=== PATIENT | male | born 1955 | race Hispanic/Latino ===

== ENCOUNTER 2019-03-08 10:36 | Outpatient (CLI) | payer MEDICARE, MEDICAID ==
[~2019-03-08 10:36] MED LIST: Iopamidol 370 76% 100 ML VIAL ONE
--- NOTE | 2019-03-08 12:24 | CT ---
CT ABDOMEN AND PELVIS PERFORMED WITH IV CONTRAST ENHANCEMENT: Date: 03/08/19 HISTORY: Cirrhosis, hepatitis, weight loss. COMPARISON: Chest CT dated 08/15/11. FINDINGS: There is some linear parenchymal change in the right middle lobe, probably related to atelectasis bri lit scar. Some ground-glass opacity in the right lung base is probably mainly on the basis of gravity -dependent atelectasis, although it could indicate some mild pneumonitis change, slightly more diffus e. There are COPD type changes also noted. The liver and spleen are within normal limits of size and show no focal lesions. The pancreas shows n o evidence of mass or ductal dilatation. The gallbladder is normal in appearance. Right and left adrenal glands are normal. Right and left kidneys are normal in size. There is a hypod ensity involving the lower pole of the left kidney. It has CT Hounsfield unit numbers that are border line, but most likely this represents a cyst. Hypodense lesion in the posterior cortex of the right k idney is much smaller than on the prior 2010 study, and appears to represent a cyst that is involuted . There is no significant periaortic or mesenteric lymphadenopathy. There is a moderate amount of sto ol present within the colon. CT of pelvis was performed with contrast enhancement. There is no adenopathy, mass, or free fluid. Scoliotic changes of the spine and extensive postoperative changes of the lumbar spine. IMPRESSION: 1. Some ground-glass opacity in the right lung base. Some of this could represent reticular scarring versus atelectasis, less likely infiltrative change. There is also right middle lobe atelectasis see n. 2. Hypodensity involving the lower pole of the left kidney. Borderline Hounsfield unit numbers, but statistically most likely a cyst. 3. Postoperative changes of the spine and left hip. POS: TPC
== END 2019-03-08 10:37 | disposition home or self-care (01) ==
LOC: BICCT 10:36
PROVIDERS: ATTEND Physician Assistant Medical
DX: K74.60 Unspecified cirrhosis of liver (principal); B18.2 Chronic viral hepatitis C; K72.90 Hepatic failure, unspecified without coma; R63.4 Abnormal weight loss; R11.10 Vomiting, unspecified; R19.4 Change in bowel habit; J98.11 Atelectasis; R91.8 Other nonspecific abnormal finding of lung field; R93.422 Abnormal radiologic findings on diagnostic imaging of left kidney; Z98.890 Other specified postprocedural states
CPT/HCPCS: 74177; 82565; Q9967

== ENCOUNTER 2019-03-22 16:10 | Inpatient (IN) | payer MEDICARE, MEDICAID ==
--- NOTE | 2019-03-22 18:18 | RAD ---
Radiograph chest one view: DATE: 03/22/2019 Time: 5:50 PM HISTORY: 64-year-old male with generalized weakness COMPARISON: 01/08/2016 FINDINGS: Lungs are hypoinflated on the current study. New finding of ill-defined areas of increased attenuatio n at the medial bases of the bilateral lungs, either chronic changes or subsegmental atelectasis. Again noted are the multiple fractured sternotomy wires. Left subclavian AICD. No cardiomegaly, pulmo nary alveolar edema, or pneumothorax. IMPRESSION: 1. Automatic implantable cardioverter-defibrillator 2. Hypoinflated lungs. 3. No gross consolidation or pulmonary edema
--- NOTE | 2019-03-22 18:20 | CT ---
CT brain noncontrast: HISTORY: 64-year-old male with generalized weakness FINDINGS: There is no evidence of acute intra-axial or extra-axial hemorrhage. There is no midline shift or any other mass effect. There is no extra-axial fluid collection. There is no evidence of obstructive hydrocephalus. Calvarium is intact. IMPRESSION: No acute intracranial findings.
--- NOTE | 2019-03-22 18:26 | CT ---
CT CERVICAL SPINE NONCONTRAST: DATE: 03/22/2019 HISTORY: 64-year-old male with bilateral hand numbness and generalized weakness FINDINGS: There are no jumped or perched facets. There is no evidence of acute fracture. The vertebral body hei ghts are maintained. There is no prevertebral soft tissue swelling. There are degenerative disc changes, including very severe at C5-6 and C6-7; and facet osteoarthrosis, including severe on the ri ght at C2-3 and C4. There are chronic anterolisthesis of C2 on C3 and C7 on T1. There is multilevel high-grade central spinal canal stenosis and high-grade neural foraminal stenosis.. IMPRESSION: 1) Advanced cervical spondylosis. 2) no evidence of acute fracture or acute traumatic subluxation.
[2019-03-22 19:02] LABS: #Basophils 0.1 thou/uL (0.0-0.2); #Eosinphils 0.9 thou/uL (0.0-0.7); #Lymphocytes 1.9 thou/uL (1.20-3.40); #Monocytes 0.7 thou/uL (0.11-0.59); #Neutrophils 3.1 thou/uL (1.40-6.50); %Basophils 1.3 % (0.0-1.0); %Lymphocytes 28.3 % (21.0-51.0); %Neutrophils 45.4 % (42.0-75.0); Hemoglobin 16.8 g/dL (14.0-18.0); Mean Corpuscular Hemoglobin 32.7 pg (27.0-31.0); Mean Corpuscular Volume 96.3 fL (78.0-98.0); Mean Platelet Volume 9.2 fL (7.4-10.4); Platelet Count 170 thou/uL (130-400); RBC Distribution Width 12.8 % (11.5-14.5); Red Blood Cell (RBC) Count 5.15 mill/uL (4.70-6.10); White Blood Cell (WBC) Count 6.7 thou/uL (4.8-10.8)
[2019-03-22 19:22] LABS: ALT (SGPT) 32 U/L (8-55); AST (SGOT) 39 U/L (5-34); Albumin 3.6 g/dL (3.4-4.8); Alkaline Phosphatase 75 U/L (40-150); Anion Gap 10 mmol/L (10-20); BUN (Urea Nitrogen) 19 mg/dL (8.4-25.7); Bilirubin, Total 0.7 mg/dL (0.2-1.2); Calc. Creatinine Clearance 0 mL/min (70-130); Calcium 9.8 mg/dL (7.8-10.44); Carbon Dioxide 27 mmol/L (23-31); Chloride 106 mmol/L (98-107); Estimated GFR-MDRD Greater than 90; Globulin 4.4 g/dL (2.4-3.5); Glucose 94 mg/dL (80-115); Potassium 3.8 mmol/L (3.5-5.1); Sodium 139 mmol/L (136-145)
--- NOTE | 2019-03-22 21:39 | CT ---
CT lumbar spine noncontrast: HISTORY: 64-year-old male with urinary incontinence and bilateral lower extremity numbness and weakness. COMPARISON: None FINDINGS: 12 lumbar-type vertebrae. Mild right scoliosis of lower thoracic spine. Very severe degenerative disc disease at T12-L1 and L1-2. Anterior wedge compression deformity of L1 due to old compression fracture. Grade 1 anterolisthesis of L5 on S1. Distended urinary bladder. Bilateral pedicle screws wi th vertical interlocking rods at L2, L3, L4, L5, and S1. Hardware loosening of bilateral L2 pedicle screws. The bilateral interlocking vertical rods are also connected to long bilateral iliac wings scr ews. Wide laminectomy defects from L3-4 through S1. Ankylosis between the L5 and S1 vertebral bodies. Methyl methacrylate cement within medial aspect of right upper iliac wing. Moderate central s oksana canal stenosis at L2 1-2 and T12-L1. Moderate to severe right neural foraminal stenosis at L1-2. IMPRESSION: 1. Severe lumbar spondylosis. 2. Bilateral pedicle screws at all levels from L2 through S1. 3. Hardware loosening of the bilateral L2 pedicle screws. 4. Midline laminectomies throughout mid and lower levels. 5. Severe degenerative disc disease at T12-L1 and L1-2. 6. Distended urinary bladder. 7. No acute compression fracture identified.
--- NOTE | 2019-03-22 21:53 | CT ---
THORACIC SPINE CT SCAN WITHOUT IV CONTRAST: 03/22/19 HISTORY: Lower extremity numbness and weakness and incontinence. There is some bilateral bullous changes and chronic lung changes. There is heterogeneous bony deminer alization. Multilevel disc osteophytosis with disc degeneration and disc desiccation changes particu larly in the lower thoracic spine. There is also severe disc osteophytosis of the visualized lower ce rvical spine with mild anterolisthesis of C7 on T1 of approximately 0.2 cm. There is no evidence for acute fracture or dislocation. There is moderate dextroscoliosis of the lower thoracic vertebral colu mn. There is some variable severity mostly mild lateral recess stenosis throughout the thoracic spine but most marked from T8-T9 down to T10-T11. No evidence for high grade central canal stenosis. No ev idence for focal bone lesion. IMPRESSION: Multilevel variable severity disc osteophytosis with some bone demineralization. Mild to moderate lat eral recess stenosis, particularly of the lower thoracic vertebral column. No evidence for high grade canal stenosis or dread cord compression. Bilateral bullous chronic lung changes. If there remains strong clinical concern for significant thoracic spine stenosis or cord compression, follow-up nonemergent myelogram and post myelogram CT scan, since an MRI cannot be performed because of pacemaker. POS: RRE
[2019-03-22] MEDS ORDERED: Ondansetron PF 4 MG/2 ML Vial IVP PRN (23:38)
[2019-03-22] MEDS ORDERED: Ondansetron ODT 4 MG TAB PO PRN (23:38)
[2019-03-22] MEDS ORDERED: PROVENTIL INHALER 6.7 G (200 INHALATIONS) INH PRN (23:40)
[2019-03-22] MEDS ORDERED: Carvedilol 6.25 MG TAB PO SCH (23:45)
[2019-03-22] MEDS ORDERED: Pregabalin 75 MG CAP PO SCH (23:45)
[2019-03-23] MEDS: Nicotine 14 MG PATCH TD SCH ×2 (00:13→20:27)
[2019-03-23] MEDS: HYDROcodone/Acetaminophen 5/325 mg Tablet PO PRN ×5 (00:13→19:32)
--- NOTE | 2019-03-23 00:36 | HP ---
This is CHRISTIANE Loredo dictating a report for Dariel Danielle MD. CHIEF COMPLAINT: Upper and lower extremity weakness, unable to walk. HISTORY OF PRESENT ILLNESS: Mr. Vera is a pleasant 64-year-old man with a history of chronic back pain who has undergone multiple back surgeries, presenting with worsening upper and lower extremity weakness. He first began to experience numbness in the bilateral hands with weakness that progressively has worsened since one week ago. He then began to experience severe weakness in the bilateral legs and has gotten to the point where he is no longer able to walk and has been carried by his nephew. The patient prior to this was mobilizing with a cane for short distances and a walker for longer distances. He reports presenting to the emergency department last week at [facility] due to a fall. The patient denies having any lightheadedness or dizziness, but was diagnosed with vertigo and sent home on meclizine. The patient's condition has continued to deteriorate. When he does attempt to stand, he has noticed urinary incontinence. Reports reduced sensation in the lower legs. Has not had any incontinence with his stools and denies having any saddle anesthesias or paresthesia. He reports having multiple falls, up to 12 times over the weekend prior to going in to be seen at [facility]. No further falls since as he has been carried by his nephew. He denies having any fevers, chills, or sweats. No headaches or vision changes. No speech disturbances. REVIEW OF SYSTEMS: All other review of systems apart from those mentioned above in HPI are negative. PAST MEDICAL HISTORY: 1. COPD. 2. Coronary artery disease. 3. CHF. 4. History of DC. 5. Hypertension. 6. Musculoskeletal disorder. 7. Grade 4 spondylolisthesis. 8. Depression. 9. Dehiscence of sternum. PAST SURGICAL HISTORY: 1. Previous back surgery. 2. Stents placed x2. 3. Pacemaker/internal defibrillator. 4. CABG. 5. ACL repair. SOCIAL HISTORY: The patient lives with his . Currently smokes one pack per day since age 10. Denies any illicit drug use or alcohol use. ALLERGIES: NO KNOWN DRUG ALLERGIES. CURRENT MEDICATIONS: 1. Meclizine. 2. Albuterol. 3. Amlodipine. 4. Aspirin. 5. Azelastine. 6. Clopidogrel. 7. Docusate sodium. 8. Finasteride. 9. Hydrochlorothiazide. 10. [place]-3. 11. Multivitamin. 12. Pravastatin. 13. Baclofen. 14. Coreg. 15. Cymbalta. 16. Flomax. 17. Lyrica. 18. Oxycodone. PHYSICAL EXAMINATION: GENERAL: The patient appears very thin and frail. He is in no acute distress. VITAL SIGNS: Temperature 97.8, pulse 75, respirations 16, blood pressure 116/71, and O2 saturation 98% on room air. HEENT: Normocephalic and atraumatic. Pupils are equal, round, and reactive to light. Sclerae are anicteric. Oropharynx is clear. NECK: Supple. No nuchal rigidity or stiffness. Full range of motion. LUNGS: Clear to auscultation bilaterally with reduced breath sounds at the bilateral bases. CARDIAC: Regular rate and rhythm. ABDOMEN: Soft, nontender, and nondistended. Normoactive bowel sounds present. EXTREMITIES: Without any edema or swelling. He is noted to have reduced power in the bilateral lower extremities. Reduced sensation on the right leg compared to the left. Equal sensation involving the bilateral thighs. He is unable to flex both knees and states this is longstanding since previous knee surgeries. Notable fasciculations of the bilateral quadriceps. Upper extremities notable for weakness, however, he has good finger grasp strength and hand awning installer strength with reduced sensation involving both upper extremities. Full passive range of motion of bilateral shoulders. Reduced strength against resistance. NEUROLOGIC: Alert and oriented x3. Facial movements and speech normal. Extraocular movements normal. No tongue deviation. SKIN: Without rash or jaundice. LABORATORY DATA: White blood count 6.7, hemoglobin 16.8, hematocrit 49.5, and platelets 170. Sodium 139, potassium 3.8, chloride 106, BUN 19, creatinine 0.84, GFR greater than 90, glucose 94, calcium 9.8, total bilirubin 0.7, AST 39, ALT 32, and alkaline phosphatase 75. Troponin I 0.028. Total protein 8, albumin 3.6, and globulin 4.4. IMAGING DATA: Chest x-ray; AICD in place. Hypoinflated lungs. No gross consolidation or pulmonary edema. CT brain; no acute intracranial findings. Cervical spine CT; advanced cervical spondylosis. No evidence of fracture or acute traumatic subluxation. Multilevel high-grade central spinal canal stenosis and high-grade neural foraminal stenosis. IMPRESSION AND PLAN: Mr. Vera is a pleasant 64-year-old man who is being admitted for management of the following. 1. Upper and lower extremity weakness. This has been progressively worsening for several weeks, and since one week ago, he is no longer to walk at all. He describes urinary incontinence, which typically occurs when he stands and states he has no sensation of needing to empty his bladder and passes urine unexpectedly. Denies having any bowel incontinence. No saddle anesthesia or paresthesias. Cervical spine CT has demonstrated high-grade stenosis with cervical spine spondylosis. We will obtain a CT scan of the cervical and lumbar spine given the fact that we cannot obtain an MRI due to the AICD. A consult has been placed to Neurosurgery. 2. Chronic back pain. We will resume home medications. 3. Coronary artery disease/congestive heart failure. We will resume home medications. 4. Hypertension. We will resume home medications and monitor blood pressure. 5. Tobacco use. We will place him on a nicotine patch. 6. Chronic obstructive pulmonary disease. We will resume his usual inhalers and monitor O2 saturations. 7. Full code status. Patient's case was discussed with Dr. Danielle, who agrees with plan of care as described above. Job ID: [id number]
[2019-03-23] MEDS: Ipratropium Bromide 2.5 ml Neb NEB SCH ×4 (01:17→18:37)
[2019-03-23 02:03] VITALS: BMI 21.9
[2019-03-23 05:50] LABS: #Basophils 0.1 thou/uL (0.0-0.2); #Eosinphils 0.7 thou/uL (0.0-0.7); #Lymphocytes 1.7 thou/uL (1.20-3.40); #Monocytes 0.7 thou/uL (0.11-0.59); #Neutrophils 3.2 thou/uL (1.40-6.50); %Basophils 0.8 % (0.0-1.0); %Eosinophils 11.2 % (0.0-10.0); %Lymphocytes 26.3 % (21.0-51.0); %Monocytes 11.1 % (0.0-10.0); %Neutrophils 50.6 % (42.0-75.0); Mean Corpuscular HGB CONC 33.6 g/dL (32.0-36.0); Mean Corpuscular Hemoglobin 31.7 pg (27.0-31.0); Mean Corpuscular Volume 94.4 fL (78.0-98.0); Mean Platelet Volume 9.7 fL (7.4-10.4); Platelet Count 154 thou/uL (130-400); RBC Distribution Width 12.7 % (11.5-14.5); Red Blood Cell (RBC) Count 4.74 mill/uL (4.70-6.10); White Blood Cell (WBC) Count 6.3 thou/uL (4.8-10.8)
[2019-03-23 06:17] LABS: Anion Gap 11 mmol/L (10-20); BUN (Urea Nitrogen) 21 mg/dL (8.4-25.7); Calc. Creatinine Clearance 73 mL/min (70-130); Carbon Dioxide 24 mmol/L (23-31); Chloride 108 mmol/L (98-107); Estimated GFR-MDRD Greater than 90; Glucose 83 mg/dL (80-115); Potassium 3.8 mmol/L (3.5-5.1); Sodium 139 mmol/L (136-145)
[2019-03-23] MEDS: Aspirin 81 mg Enteric Coated Tablet PO SCH (07:57)
[2019-03-23] MEDS: Carvedilol 6.25 MG TAB PO SCH ×2 (07:57→20:28)
[2019-03-23] MEDS: Clopidogrel Bisulfate 75 MG TAB PO SCH (07:57)
[2019-03-23] MEDS: Pregabalin 75 MG CAP PO SCH ×4 (08:15→20:28)
[2019-03-23] MEDS: Baclofen 10 MG TAB PO SCH ×3 (08:16→20:29)
[2019-03-23] MEDS: Amlodipine 5 MG TAB PO SCH (08:16)
[2019-03-23] MEDS: DULoxetine 60 MG CAP PO SCH (08:17)
[2019-03-23] MEDS: Tamsulosin HCl 0.4 MG CAP PO SCH (08:17)
[2019-03-23] MEDS: Famotidine/PF 20 mg/2ml Vial SLOW IVP SCH ×2 (08:17→20:29)
[2019-03-23] MEDS: Multivit, Therapeutic 1 TAB PO SCH (08:23)
[2019-03-23] MEDS: Hydrochlorothiazide 25 MG TAB PO SCH (08:23)
[2019-03-23] MEDS ORDERED: Prevnar 13-Val Conj/PF 0.5 ML SYRINGE IM ONE (09:00)
--- NOTE | 2019-03-23 15:10 | PDOC.PN ---
- Subjective Encounter Start Date: 03/23/19 Encounter Start Time: 15:07 Patient lying in bed, he reports pain slightly improved today, but he reports quite a bit of weakness. He denies chest pain, shortness of breath. CT and other imaging reviewed and discussed with patient. - Objective Resuscitation Status - Order Detail: 03/22/19 21:17 Resuscitation Status Routine Co-Sign Provider: Resuscitation Status: FULL: Full Resuscitation Discussed with: Patient and MAR Reviewed: Yes Vital Signs & Weight: Vital Signs (12 hours) Temp Pulse Resp BP Pulse Ox 03/23/19 13:27 80 16 96 03/23/19 11:41 97.7 F 60 18 126/86 92 L 03/23/19 08:16 50 L 03/23/19 07:43 98.2 F 50 L 18 143/94 H 92 L 03/23/19 07:05 67 16 95 03/23/19 05:16 99.6 F 103 H 22 H 153/79 H 93 L Weight Weight 124 lb I&O: 03/22/19 03/23/19 03/24/19 06:59 06:59 06:59 Intake Total 610 Output Total 300 Balance 310 Result Diagrams: 03/23/19 04:59 03/23/19 04:59 Radiology Reviewed by me: Yes Phys Exam - Physical Examination Constitutional: NAD HEENT: moist MMs Neck: supple Respiratory: no rales, no rhonchi Cardiovascular: RRR, no significant murmur Gastrointestinal: soft, positive bowel sounds Musculoskeletal: no edema, pulses present Neurological: moves all 4 limbs Psychiatric: normal affect, A&O x 3 Skin: no rash, cap refill <2 seconds Dx/Plan (1) Lumbar stenosis Code(s): M48.061 - SPINAL STENOSIS, LUMBAR REGION WITHOUT NEUROGENIC HORACIO Status: Acute (2) Spondylosis Code(s): M47.9 - SPONDYLOSIS, UNSPECIFIED Status: Acute (3) Chronic back pain Code(s): M54.9 - DORSALGIA, UNSPECIFIED; G89.29 - OTHER CHRONIC PAIN Status: Acute (4) CAD (coronary artery disease) Code(s): I25.10 - ATHSCL HEART DISEASE OF [place] CORONARY ARTERY W/O ANG PCTRS Status: Acute (5) HTN (hypertension) Code(s): I10 - ESSENTIAL (PRIMARY) HYPERTENSION Status: Acute - Plan cont current plan of care, PT/OT * Continue supportive and symptomatic care * Neuro surgery services are consulted and appreciate recommendations * Continue other home medications * PT/OT * Imaging reviewed and discussed with patient * Patient may require Myelogram
[2019-03-23] MEDS: FINASTERIDE 1 MG PO SCH (15:51)
[2019-03-23] MEDS: Pravastatin Sodium 40 MG TAB PO SCH (20:29)
[2019-03-23] MEDS: oxyCODONE 5 MG TAB PO PRN (20:57)
--- NOTE | 2019-03-23 23:47 | CON ---
DATE OF CONSULTATION: This is Vic Perdomo PA-C dictating a report for Sin Garcia MD. This is a 50-minute initial patient evaluation of which greater than 50% of the exam was spent in counseling and coordinating the patient's care. Remainder of the exam was spent in review of the patient's medical records and formulation of treatment plan as well as review of appropriate imaging studies. CHIEF COMPLAINT: Weakness, greater in the arms than the legs with increased falls and progressive cervical myelopathy. HISTORY OF PRESENT ILLNESS: Mr. Vera is a pleasant 64-year-old male, who was admitted to [facility] with complaints of increased falls. The patient states over the past 6 to 8 weeks, he has noticed difficulty with fine motor movements, weakness in the arms greater than the legs, and difficulty controlling urine. The patient, I should note, has chronic low back pain with right hip pain and has had multitude of lumbar spinal fusions with Davian and White in the [place] area. He also complains of right greater than left lateral biceps pain, again with paresthesias throughout the bilateral hands, bilateral feet with burning sensation into the hands and fine motor incoordination. He has had increased falls. Specifically over the last 2 days, he notes roughly 12 falls, though does use a cane and a walker for gait stability. He also endorses a positive Lhermitte sign with cervical range of motion. He has been undergoing PT and OT as prescribed by his primary care provider over the past several weeks, but notes no improvement in his symptoms. He denies any saddle anesthesia or bowel incontinence, but again has noticed some urinary incontinence over the past 2 to 3 weeks, which has even required him to wear protection even at home. Review of the patient's CT scan is negative for intracranial hemorrhage or skull fracture. There does not appear to be any acute fractures of the cervical, thoracic, and lumbar spines. More specifically, it does appear that the patient likely has significant cervical spinal stenosis, but this is difficult to tell on CT scan. Review of his lumbar spine CT, it does appear as though he is developing proximal adjacent segment disease at L1-L2 with screws at L2-L3, but stability of his hardware from L2-S1 with iliac wing screws. There does not appear to be any malfunction of the hardware in regard to hardware failure or fracture. I should also note that the patient is on Plavix and aspirin due to coronary artery disease, history of NV with stents and pacemaker placement. I should also note that the patient is a current everyday smoker. PHYSICAL EXAMINATION: GENERAL: The patient is awake, alert, and appropriate. He appears to be older than his stated age. He does have nicotine staining on his fingers. EXTREMITIES: He appears to have weakness throughout the bilateral upper and bilateral lower extremities, but most profoundly in the bilateral right greater than left hand intrinsics, especially with family law legal assistant. He also has functional weakness when attempting to lift the phone in his room and does appear to have a significant fine motor incoordination and difficulty with finger dexterity. He has good sensation into the belly button region as well as into the bilateral thighs. He has no Anne's bilaterally and no tenderness to palpation of the cervical spine. He does have a history of sternal dehiscence after his stent placement and pacemaker placement. Although, I should note his sternal wound is very well healed. He has positive again Lhermitte with electric shock sensations throughout the back, bilateral lower extremities, and into the feet. IMPRESSION AND DIAGNOSES: 1. Chronic low back pain and right hip pain with multiple lumbar spine surgeries at outside institutions. 2. Likely, progressive cervical spondylosis with myelopathy. PLAN: Ideally, we would like to get an MRI of the spine; however, given the fact the patient has a pacemaker, we are unable to do this. The patient will need myelograms of his cervical, thoracic, and lumbar spines. He is on Plavix and aspirin, so these will need to be held. Likely, this can be done on an outpatient basis. I also discussed the fact that even though we are going to get a spinal imaging, the patient may not be physically healthy enough to undergo any type of surgery and he understands this. We did discuss the importance of smoking cessation. Nonetheless, we will coordinate when his CT myelograms can be completed, but otherwise his pain control be maximized as well as rehab including PT and OT. Please call with any changes in the patient's neurologic status. Otherwise, we will follow up on the patient. Job ID: [id number]
[2019-03-24] MEDS: Ipratropium Bromide 2.5 ml Neb NEB SCH ×4 (00:02→18:25)
[2019-03-24] MEDS: oxyCODONE 5 MG TAB PO PRN ×2 (05:42→20:21)
[2019-03-24] MEDS: DULoxetine 60 MG CAP PO SCH (08:30)
[2019-03-24] MEDS: Amlodipine 5 MG TAB PO SCH (08:31)
[2019-03-24] MEDS: Baclofen 10 MG TAB PO SCH ×3 (08:31→20:18)
[2019-03-24] MEDS: Multivit, Therapeutic 1 TAB PO SCH (08:31)
[2019-03-24] MEDS: Carvedilol 6.25 MG TAB PO SCH ×2 (08:32→20:20)
[2019-03-24] MEDS: Pregabalin 75 MG CAP PO SCH ×4 (08:32→21:28)
[2019-03-24] MEDS: Hydrochlorothiazide 25 MG TAB PO SCH (08:32)
[2019-03-24] MEDS: Tamsulosin HCl 0.4 MG CAP PO SCH (08:33)
[2019-03-24] MEDS: Famotidine/PF 20 mg/2ml Vial SLOW IVP SCH ×2 (08:39→20:20)
[2019-03-24] MEDS: HYDROcodone/Acetaminophen 5/325 mg Tablet PO PRN ×2 (11:33→15:43)
--- NOTE | 2019-03-24 14:33 | PRG ---
DATE OF SERVICE: This is Vic Perdomo PA-C dictating a report for Sin Garcia MD. This is a 10-minute subsequent patient evaluation, in which greater than 50% of the exam was spent in counseling and coordinating the patient's care. Remainder of the exam was spent in review of the patient's medical records and formulation of treatment plan. Mr. Vera is hospital day #2 and presents with likely cervical myelopathy including increased falls, right greater than left arm weakness and fine motor incoordination of the hands. The patient states that he does continue to have neck pain as well. He notes no change in his symptoms today compared to yesterday. He remains with right greater than left weakness in multiple myotomes, most specifically into the right hand intrinsics. He has intact sensation to light touch throughout, however. His exam is stable from yesterday. At this time, we need to determine if the patient is able to be off his blood thinners long enough to undergo a myelogram, which we will likely need to hold at least 7 days prior to the myelogram. We would obtain cervical, thoracic and lumbar spine myelograms in order to fully assess the patient's spine, although it is highly likely that the patient has most stenosis located in the cervical spine. Nonetheless, I think it would be prudent for Cardiology to weigh in if the patient again is stable enough to come off the blood thinners. He will need aggressive rehab including physical therapy and occupational therapy, and if surgery is warranted in the future, he will need medical clearance for this as well. He would likely benefit for aggressive therapy and discharge to inpatient rehab again to maximize his therapies. Neurosurgery at this point does not see a role for urgent intervention as the patient has been dealing with this for the past several months. Please call with any changes in patient's neurologic status. Otherwise, when the patient is able to come off his blood thinners, we will order appropriate myelogram and determine surgical treatment plan. Job ID: [id number]
[2019-03-24] MEDS: Aspirin 81 mg Enteric Coated Tablet PO SCH (14:56)
[2019-03-24] MEDS: Clopidogrel Bisulfate 75 MG TAB PO SCH (14:56)
[2019-03-24] MEDS: FINASTERIDE 1 MG PO SCH (14:57)
--- NOTE | 2019-03-24 18:21 | PDOC.PN ---
- Subjective Encounter Start Date: 03/24/19 Encounter Start Time: 18:19 Patient lying comfortably in bed, No complaints over night. Neuro surgery recommending MRI vs myelogram. He denies chest pain, palpitations. Weakness continuing. Cardiology services consulted for evaluation and determined device is MRI compatible and patient may come off antiplatelet therapy for procedure and or surgery if needed. - Objective Resuscitation Status - Order Detail: 03/22/19 21:17 Resuscitation Status Routine Co-Sign Provider: Resuscitation Status: FULL: Full Resuscitation Discussed with: Patient and JOHN Reviewed: Yes Vital Signs & Weight: Vital Signs (12 hours) Temp Pulse Resp BP Pulse Ox 03/24/19 16:37 98.0 F 65 16 104/69 94 L 03/24/19 14:36 61 16 03/24/19 11:54 98.2 F 61 18 119/83 94 L 03/24/19 08:31 61 03/24/19 08:00 98.6 F 61 16 146/93 H 98 03/24/19 06:48 61 16 Weight Weight 124 lb I&O: 03/23/19 03/24/19 03/25/19 06:59 06:59 06:59 Intake Total 860 497 8905 Output Total 300 400 650 Balance 310 212 850 Result Diagrams: 03/23/19 04:59 03/23/19 04:59 Radiology Reviewed by me: Yes Phys Exam - Physical Examination Constitutional: NAD HEENT: moist MMs, oral pharynx no lesions Neck: supple Respiratory: no wheezing, clear to auscultation bilateral Cardiovascular: RRR, no rub Gastrointestinal: soft, no distention, positive bowel sounds Musculoskeletal: no edema, pulses present Neurological: moves all 4 limbs Psychiatric: normal affect, A&O x 3 Skin: no rash, cap refill <2 seconds Dx/Plan (1) Lumbar stenosis Code(s): M48.061 - SPINAL STENOSIS, LUMBAR REGION WITHOUT NEUROGENIC HORACIO Status: Acute (2) Spondylosis Code(s): M47.9 - SPONDYLOSIS, UNSPECIFIED Status: Acute (3) Chronic back pain Code(s): M54.9 - DORSALGIA, UNSPECIFIED; G89.29 - OTHER CHRONIC PAIN Status: Acute (4) CAD (coronary artery disease) Code(s): I25.10 - ATHSCL HEART DISEASE OF [place] CORONARY ARTERY W/O ANG PCTRS Status: Acute (5) HTN (hypertension) Code(s): I10 - ESSENTIAL (PRIMARY) HYPERTENSION Status: Acute (6) Cervical myelopathy with cervical radiculopathy Code(s): M47.12 - OTHER SPONDYLOSIS WITH MYELOPATHY, CERVICAL REGION Status: Acute - Plan cont current plan of care, PT/OT * Continue supportive and symptomatic care * PT/OT * Cardiology services consulted and determined patient able to have MRI due to device being compatible * Neurology services concern for cervical myelopathy and recommending further evaluation * Rehab screen placed, hoever he may not qualify based on insurance * Patient converted to inpatient due to his condition requiring further evaluation and care * Case and plan discussed with Dr Lucas who agrees
[2019-03-24] MEDS: Pravastatin Sodium 40 MG TAB PO SCH (20:19)
[2019-03-24] MEDS: Nicotine 14 MG PATCH TD SCH (20:20)
[2019-03-24] MEDS: Docusate 100 MG CAP PO PRN (22:11)
[2019-03-24] MEDS ORDERED: Azelastine 137 MCG/Spray 30 ML NS SCH ×2 (22:45)
[2019-03-25] MEDS: Ipratropium Bromide 2.5 ml Neb NEB SCH ×4 (01:40→20:28)
[2019-03-25] MEDS: oxyCODONE 5 MG TAB PO PRN ×3 (02:15→17:44)
[2019-03-25] MEDS: HYDROcodone/Acetaminophen 5/325 mg Tablet PO PRN ×2 (04:05→20:05)
[2019-03-25] MEDS: Hydrochlorothiazide 25 MG TAB PO SCH (08:28)
[2019-03-25] MEDS: Famotidine/PF 20 mg/2ml Vial SLOW IVP SCH ×2 (08:28→20:06)
[2019-03-25] MEDS: Baclofen 10 MG TAB PO SCH ×3 (08:28→20:05)
[2019-03-25] MEDS: Azelastine 137 MCG/Spray 30 ML NS SCH (08:28)
[2019-03-25] MEDS: DULoxetine 60 MG CAP PO SCH (08:29)
[2019-03-25] MEDS: Clopidogrel Bisulfate 75 MG TAB PO SCH (08:29)
[2019-03-25] MEDS: Multivit, Therapeutic 1 TAB PO SCH (08:29)
[2019-03-25] MEDS: Aspirin 81 mg Enteric Coated Tablet PO SCH (08:29)
[2019-03-25] MEDS: Pregabalin 75 MG CAP PO SCH ×4 (08:30→20:06)
[2019-03-25] MEDS: Tamsulosin HCl 0.4 MG CAP PO SCH (08:30)
[2019-03-25] MEDS: Amlodipine 5 MG TAB PO SCH (08:31)
[2019-03-25] MEDS: Carvedilol 6.25 MG TAB PO SCH ×2 (08:31→20:05)
[2019-03-25] MEDS ORDERED: Azelastine 137 MCG/Spray 30 ML NS SCH (09:00)
[2019-03-25] MEDS: FINASTERIDE 1 MG PO SCH (09:29)
--- NOTE | 2019-03-25 10:57 | PDOC.PN ---
- Subjective Encounter Start Date: 03/25/19 Encounter Start Time: 08:30 -: old records requested/rev pt has myelopathy features, he has difficulty ambulation and fine motor activity with upper extremity - Objective Resuscitation Status - Order Detail: 03/22/19 21:17 Resuscitation Status Routine Co-Sign Provider: Resuscitation Status: FULL: Full Resuscitation Discussed with: Patient and JOHN Reviewed: Yes Vital Signs & Weight: Vital Signs (12 hours) Temp Pulse Resp BP BP Pulse Ox 03/25/19 08:31 67 118/76 03/25/19 07:12 67 16 03/25/19 07:05 98 F 67 19 118/76 94 L 03/25/19 01:40 70 20 Weight Weight 124 lb I&O: 03/24/19 03/25/19 03/26/19 06:59 06:59 06:59 Intake Total 612 2312 Output Total 400 1300 300 Balance 212 1012 -300 Result Diagrams: 03/23/19 04:59 03/23/19 04:59 Radiology Reviewed by me: Yes EKG Reviewed by me: Yes Phys Exam - Physical Examination Constitutional: NAD HEENT: PERRLA, moist MMs, sclera anicteric Neck: no JVD, supple Respiratory: no wheezing, no rales, no rhonchi Cardiovascular: RRR, no significant murmur, no rub Gastrointestinal: soft, non-tender, no distention, positive bowel sounds Musculoskeletal: no edema, pulses present Neurological: moves all 4 limbs Lymphatic: no nodes Psychiatric: normal affect Skin: no rash, normal turgor Dx/Plan (1) Cervical myelopathy with cervical radiculopathy Code(s): M47.12 - OTHER SPONDYLOSIS WITH MYELOPATHY, CERVICAL REGION Status: Acute (2) BPH (benign prostatic hyperplasia) Code(s): N40.0 - BENIGN PROSTATIC HYPERPLASIA WITHOUT LOWER URINRY TRACT SYMP Status: Chronic (3) CAD (coronary artery disease) Code(s): I25.10 - ATHSCL HEART DISEASE OF [place] CORONARY ARTERY W/O ANG PCTRS Status: Chronic (4) Chronic back pain Code(s): M54.9 - DORSALGIA, UNSPECIFIED; G89.29 - OTHER CHRONIC PAIN Status: Chronic (5) HTN (hypertension) Code(s): I10 - ESSENTIAL (PRIMARY) HYPERTENSION Status: Chronic (6) Lumbar stenosis Code(s): M48.061 - SPINAL STENOSIS, LUMBAR REGION WITHOUT NEUROGENIC HORACIO Status: Chronic (7) Spondylosis Code(s): M47.9 - SPONDYLOSIS, UNSPECIFIED Status: Chronic - Plan cont current plan of care, PT/OT, social services counselor * as per neurosurgery, no urgent need for surgery, he will need myelogram and cardiac clearance before surgery, cardiology has been consulted * he will need placement on discharge, rehab vs snu * medication reviewed as below * symptomatic treatment. Review of Systems - Review of Systems ENT: negative: Ear Pain, Ear Discharge, Nose Pain, Nose Discharge, Nose Congestion, Mouth Pain, Mouth Swelling, Throat Pain, Throat Swelling, Other Respiratory: negative: Cough, Dry, Shortness of Breath, Hemoptysis, SOB with Excertion, Pleuritic Pain, Sputum, Wheezing Cardiovascular: negative: chest pain, palpitations, orthopnea, paroxysmal nocturnal dyspnea, edema, light headedness, other Gastrointestinal: negative: Nausea, Vomiting, Abdominal Pain, Diarrhea, Constipation, Melena, Hematochezia, Other Genitourinary: negative: Dysuria, Frequency, Incontinence, Hematuria, Retention , Other Musculoskeletal: Neck Pain, Back Pain. negative: Shoulder Pain, Arm Pain, Hand Pain, Leg Pain, Foot Pain, Other - Medications/Allergies Allergies/Adverse Reactions: Allergies Allergy/AdvReac Type Severity Reaction Status Date / Time No Known Drug Allergies Allergy Verified 06/05/14 22:48 Medications: Current Medications Hydrocodone Bitart/Acetaminophen ([place] 5/325) 1 tab PO Q4H PRN PRN Reason: Moderate Pain (4-6) Last Admin: 03/25/19 04:05 Dose: 1 tab Albuterol Sulfate (Proventil Hfa) 2 puff INH Q4HR PRN PRN Reason: Dyspnea/Wheezing/SOB Amlodipine Besylate (Norvasc) 2.5 mg PO DAILY [facility] Last Admin: 03/25/19 08:31 Dose: 2.5 mg Aspirin (Ecotrin) 81 mg PO DAILY [facility] Last Admin: 03/25/19 08:29 Dose: 81 mg Azelastine HCl (Azelastine) 0 ml NS DAILY [facility] Last Admin: 03/25/19 08:28 Dose: 1 spr Baclofen (Lioresal) 10 mg PO TID [facility] Last Admin: 03/25/19 08:28 Dose: 10 mg Carvedilol (Coreg) 6.25 mg PO BID [facility] Last Admin: 03/25/19 08:31 Dose: 6.25 mg Clopidogrel Bisulfate (Plavix) 75 mg PO DAILY [facility] Last Admin: 03/25/19 08:29 Dose: Not Given Docusate Sodium (Colace) 100 mg PO BID PRN PRN Reason: Constipation Last Admin: 03/24/19 22:11 Dose: 100 mg Duloxetine HCl (Cymbalta) 60 mg PO DAILY [facility] Last Admin: 03/25/19 08:29 Dose: 60 mg Famotidine (Pepcid) 20 mg SLOW IVP Q12HR [facility] Last Admin: 03/25/19 08:28 Dose: 20 mg Hydrochlorothiazide (Hydrochlorothiazide) 12.5 mg PO DAILY [facility] Last Admin: 03/25/19 08:28 Dose: 12.5 mg Ipratropium [place] (Atrovent) 2.5 ml NEB [id number] [facility] Last Admin: 03/25/19 07:12 Dose: 2.5 ml Multivitamins (Theragran) 1 tab PO DAILY [facility] Last Admin: 03/25/19 08:29 Dose: 1 tab Nicotine (Nicoderm Patch) 14 mg TD Q24HR [facility] Last Admin: 03/24/19 20:20 Dose: 14 mg Non-Formulary Medication (Finasteride [Finasteride]) 1 mg PO DAILY [facility] Last Admin: 03/25/19 09:29 Dose: Not Given Ondansetron HCl (Zofran Odt) 4 mg PO Q6H PRN PRN Reason: Nausea/Vomiting Ondansetron HCl (Zofran) 4 mg IVP Q6H PRN PRN Reason: Nausea/Vomiting Oxycodone HCl (Oxycodone Ir) 5 mg PO QID PRN PRN Reason: Pain Last Admin: 03/25/19 08:29 Dose: 5 mg Pravastatin Sodium (Pravachol) 40 mg PO HS [facility] Last Admin: 03/24/19 20:19 Dose: 40 mg Pregabalin (Lyrica) 75 mg PO QID [facility] Last Admin: 03/25/19 08:30 Dose: 75 mg Sodium Chloride (Flush - Normal Saline) 10 ml IVF Q12HR PRN PRN Reason: Saline Flush Last Admin: 03/24/19 20:20 Dose: 10 ml Sodium Chloride (Flush - Normal Saline) 10 ml IVF PRN PRN PRN Reason: Saline Flush Tamsulosin HCl (Flomax) 0.8 mg PO DAILY [facility] Last Admin: 03/25/19 08:30 Dose: 0.8 mg
--- NOTE | 2019-03-25 12:29 | PRG ---
DATE OF SERVICE: 03/25/2019 This is a 30-minute initial hospital visit note, in which 30 minutes were spent reviewing the imaging record, evaluation, examination of the patient, formulation of plan. Greater than 50% time was spent counseling on Rex Vera. I reviewed the notes of my colleague, Vic ROSALES, and agree with its content. Mr. Vera is a 64-year-old man. He uses nicotine, history ischemic cardiomyopathy with also pacemaker placement. We have been notified by our Cardiology team that the pacemaker is MRI compatible, and as such, we will order an MRI of the cervical spine as the patient has presented with subacute on chronic progression of four extremity quadriparesis. He states the last time he ambulated was three months ago. He has significant evidence of myelopathy in all four extremities with significant weakness throughout, but is able to get his elbows up to approximately the region of the shoulders in abduction with moderate weakness throughout his lower extremities as well. There is certainly evidence of atrophy throughout all four limbs and I suspect this is a cervical stenosis issue. 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 His main issue now certainly appears to be cervical. He appears to be very cachectic and malnourished as well, which is also obviously a concern and has been on aspirin and Plavix. We will obtain an MRI to see what the cause or to assess initially what the status of his cervical canal looks like and go from there. Obviously, surgery will be predicated on what we see. Job ID: [id number]
[2019-03-25] MEDS ORDERED: Sodium Chloride 0.65% Nasal 44 ML BOT EA NARE PRN (17:54)
[2019-03-25] MEDS: Pravastatin Sodium 40 MG TAB PO SCH (20:05)
[2019-03-25] MEDS: Nicotine 14 MG PATCH TD SCH (20:07)
--- NOTE | 2019-03-26 00:06 | EKG ---
Test Reason : Blood Pressure : / mmHG Vent. Rate : 068 BPM Atrial Rate : 068 BPM P-R Int : 164 ms QRS Dur : 124 ms QT Int : 414 ms P-R-T Axes : 036 001 152 degrees QTc Int : 440 ms Normal sinus rhythm Inferior infarct , age undetermined No STEMI Abnormal ECG Confirmed by RAJWINDER KWAN M.D. ([id number]), photograph editor DAV AVILA ([id number]) on 03/26/2019 12:06:30 AM Referred By: Confirmed By:RAJWINDER KWAN M.D.
[2019-03-26] MEDS: Ipratropium Bromide 2.5 ml Neb NEB SCH ×4 (00:21→18:24)
[2019-03-26] MEDS: oxyCODONE 5 MG TAB PO PRN ×2 (05:28→17:06)
[2019-03-26] MEDS: Docusate 100 MG CAP PO PRN (05:28)
[2019-03-26] MEDS: Azelastine 137 MCG/Spray 30 ML NS SCH (08:30)
[2019-03-26] MEDS: Amlodipine 5 MG TAB PO SCH (08:32)
[2019-03-26] MEDS: Multivit, Therapeutic 1 TAB PO SCH (08:32)
[2019-03-26] MEDS: Aspirin 81 mg Enteric Coated Tablet PO SCH (08:32)
[2019-03-26] MEDS: Clopidogrel Bisulfate 75 MG TAB PO SCH (08:32)
[2019-03-26] MEDS: DULoxetine 60 MG CAP PO SCH (08:33)
[2019-03-26] MEDS: FINASTERIDE 1 MG PO SCH (08:33)
[2019-03-26] MEDS: Pregabalin 75 MG CAP PO SCH ×4 (08:33→20:22)
[2019-03-26] MEDS: Tamsulosin HCl 0.4 MG CAP PO SCH (08:33)
[2019-03-26] MEDS: Baclofen 10 MG TAB PO SCH ×3 (08:33→20:24)
[2019-03-26] MEDS: Hydrochlorothiazide 25 MG TAB PO SCH (08:33)
[2019-03-26] MEDS: Carvedilol 6.25 MG TAB PO SCH ×2 (08:33→20:22)
[2019-03-26] MEDS: Famotidine/PF 20 mg/2ml Vial SLOW IVP SCH ×2 (08:34→20:22)
--- NOTE | 2019-03-26 09:32 | PDOC.PN ---
- Subjective Encounter Start Date: 03/26/19 Encounter Start Time: 08:20 Patient seen and examined. No new complaints. No overnight events - Objective Resuscitation Status - Order Detail: 03/22/19 21:17 Resuscitation Status Routine Co-Sign Provider: Resuscitation Status: FULL: Full Resuscitation Discussed with: Patient and JOHN Reviewed: Yes Vital Signs & Weight: Vital Signs (12 hours) Temp Pulse Resp BP BP Pulse Ox 03/26/19 08:48 98.1 F 73 16 108/74 94 L 03/26/19 08:33 108/74 03/26/19 08:32 73 108/74 03/26/19 00:21 79 16 98 Weight Weight 124 lb I&O: 03/25/19 03/26/19 03/27/19 06:59 06:59 06:59 Intake Total 2312 1012 Output Total 1300 1100 Balance 1012 -88 Result Diagrams: 03/23/19 04:59 03/23/19 04:59 Phys Exam - Physical Examination Constitutional: NAD HEENT: PERRLA, moist MMs, sclera anicteric Neck: no JVD, supple Respiratory: no wheezing, no rales, no rhonchi Cardiovascular: RRR, no significant murmur, no rub Gastrointestinal: soft, non-tender, no distention, positive bowel sounds Musculoskeletal: no edema, pulses present atrophy, hyperreflexia, weakness noted Lymphatic: no nodes Psychiatric: normal affect, A&O x 3 Skin: no rash, normal turgor Dx/Plan (1) Cervical myelopathy with cervical radiculopathy Code(s): M47.12 - OTHER SPONDYLOSIS WITH MYELOPATHY, CERVICAL REGION Status: Acute (2) BPH (benign prostatic hyperplasia) Code(s): N40.0 - BENIGN PROSTATIC HYPERPLASIA WITHOUT LOWER URINRY TRACT SYMP Status: Chronic (3) CAD (coronary artery disease) Code(s): I25.10 - ATHSCL HEART DISEASE OF [place] CORONARY ARTERY W/O ANG PCTRS Status: Chronic (4) Chronic back pain Code(s): M54.9 - DORSALGIA, UNSPECIFIED; G89.29 - OTHER CHRONIC PAIN Status: Chronic (5) HTN (hypertension) Code(s): I10 - ESSENTIAL (PRIMARY) HYPERTENSION Status: Chronic (6) Lumbar stenosis Code(s): M48.061 - SPINAL STENOSIS, LUMBAR REGION WITHOUT NEUROGENIC HORACIO Status: Chronic (7) Spondylosis Code(s): M47.9 - SPONDYLOSIS, UNSPECIFIED Status: Chronic - Plan cont current plan of care * medication reviewed as below * symptomatic treatment * MRI cervical spine tomorrow as [employer] team not available * after MRI, neurosurgery will decide if surgery will need this admission * eventually he will need rehab placement. Review of Systems - Review of Systems ENT: negative: Ear Pain, Ear Discharge, Nose Pain, Nose Discharge, Nose Congestion, Mouth Pain, Mouth Swelling, Throat Pain, Throat Swelling, Other Respiratory: negative: Cough, Dry, Shortness of Breath, Hemoptysis, SOB with Excertion, Pleuritic Pain, Sputum, Wheezing Cardiovascular: negative: chest pain, palpitations, orthopnea, paroxysmal nocturnal dyspnea, edema, light headedness, other Gastrointestinal: negative: Nausea, Vomiting, Abdominal Pain, Diarrhea, Constipation, Melena, Hematochezia, Other Genitourinary: negative: Dysuria, Frequency, Incontinence, Hematuria, Retention , Other Musculoskeletal: negative: Neck Pain, Shoulder Pain, Arm Pain, Back Pain, Hand Pain, Leg Pain, Foot Pain, Other - Medications/Allergies Allergies/Adverse Reactions: Allergies Allergy/AdvReac Type Severity Reaction Status Date / Time No Known Drug Allergies Allergy Verified 06/05/14 22:48 Medications: Current Medications Hydrocodone Bitart/Acetaminophen ([place] 5/325) 1 tab PO Q4H PRN PRN Reason: Moderate Pain (4-6) Last Admin: 03/25/19 20:05 Dose: 1 tab Albuterol Sulfate (Proventil Hfa) 2 puff INH Q4HR PRN PRN Reason: Dyspnea/Wheezing/SOB Amlodipine Besylate (Norvasc) 2.5 mg PO DAILY [facility] Last Admin: 03/26/19 08:32 Dose: 2.5 mg Aspirin (Ecotrin) 81 mg PO DAILY [facility] Last Admin: 03/26/19 08:32 Dose: 81 mg Azelastine HCl (Azelastine) 0 ml NS DAILY [facility] Last Admin: 03/26/19 08:30 Dose: 1 spr Baclofen (Lioresal) 10 mg PO TID [facility] Last Admin: 03/26/19 08:33 Dose: 10 mg Carvedilol (Coreg) 6.25 mg PO BID [facility] Last Admin: 05/05/19 08:33 Dose: 6.25 mg Clopidogrel Bisulfate (Plavix) 75 mg PO DAILY [facility] Last Admin: 03/26/19 08:32 Dose: Not Given Docusate Sodium (Colace) 100 mg PO BID PRN PRN Reason: Constipation Last Admin: 03/26/19 05:28 Dose: 100 mg Duloxetine HCl (Cymbalta) 60 mg PO DAILY [facility] Last Admin: 03/26/19 08:33 Dose: 60 mg Famotidine (Pepcid) 20 mg SLOW IVP Q12HR [facility] Last Admin: 03/26/19 08:34 Dose: 20 mg Hydrochlorothiazide (Hydrochlorothiazide) 12.5 mg PO DAILY [facility] Last Admin: 03/26/19 08:33 Dose: 12.5 mg Ipratropium [place] (Atrovent) 2.5 ml NEB [id number] [facility] Last Admin: 03/26/19 00:21 Dose: 2.5 ml Multivitamins (Theragran) 1 tab PO DAILY [facility] Last Admin: 03/26/19 08:32 Dose: 1 tab Nicotine (Nicoderm Patch) 14 mg TD Q24HR [facility] Last Admin: 03/25/19 20:07 Dose: 14 mg Non-Formulary Medication (Finasteride [Finasteride]) 1 mg PO DAILY [facility] Last Admin: 03/26/19 08:33 Dose: Not Given Ondansetron HCl (Zofran Odt) 4 mg PO Q6H PRN PRN Reason: Nausea/Vomiting Ondansetron HCl (Zofran) 4 mg IVP Q6H PRN PRN Reason: Nausea/Vomiting Oxycodone HCl (Oxycodone Ir) 5 mg PO QID PRN PRN Reason: Pain Last Admin: 03/26/19 05:28 Dose: 5 mg Pravastatin Sodium (Pravachol) 40 mg PO HS [facility] Last Admin: 03/25/19 20:05 Dose: 40 mg Pregabalin (Lyrica) 75 mg PO QID [facility] Last Admin: 03/26/19 08:33 Dose: 75 mg Sodium Chloride (Flush - Normal Saline) 10 ml IVF Q12HR PRN PRN Reason: Saline Flush Last Admin: 03/25/19 20:07 Dose: 10 ml Sodium Chloride (Flush - Normal Saline) 10 ml IVF PRN PRN PRN Reason: Saline Flush Sodium Chloride ([place] Nasal [place] 0.65%) 0 ml EA NARE QID PRN PRN Reason: Congestion Tamsulosin HCl (Flomax) 0.8 mg PO DAILY [facility] Last Admin: 03/26/19 08:33 Dose: 0.8 mg
[2019-03-26] MEDS ORDERED: Magnesium Citrate 300 ML BOT PO SCH (15:00)
[2019-03-26] MEDS: Pravastatin Sodium 40 MG TAB PO SCH (20:22)
[2019-03-26] MEDS: Nicotine 14 MG PATCH TD SCH (20:22)
[2019-03-26] MEDS ORDERED: Polyethylene Glycol 3350 17 GM Packet PO PRN (21:55)
[2019-03-26] MEDS ORDERED: Fleet Enema 133 ML BOT PR SCH (22:00)
[2019-03-26 22:20] LABS: #Eosinphils 0.4 thou/uL (0.0-0.7); #Lymphocytes 1.7 thou/uL (1.20-3.40); #Monocytes 1.4 thou/uL (0.11-0.59); #Neutrophils 7.7 thou/uL (1.40-6.50); %Basophils 0.3 % (0.0-1.0); %Eosinophils 3.5 % (0.0-10.0); %Lymphocytes 14.7 % (21.0-51.0); %Monocytes 12.8 % (0.0-10.0); %Neutrophils 68.7 % (42.0-75.0); Hemoglobin 16.6 g/dL (14.0-18.0); Mean Corpuscular HGB CONC 33.3 g/dL (32.0-36.0); Mean Corpuscular Hemoglobin 32.1 pg (27.0-31.0); Mean Corpuscular Volume 96.4 fL (78.0-98.0); Mean Platelet Volume 9.4 fL (7.4-10.4); Platelet Count 152 thou/uL (130-400); RBC Distribution Width 12.4 % (11.5-14.5); Red Blood Cell (RBC) Count 5.18 mill/uL (4.70-6.10); White Blood Cell (WBC) Count 11.2 thou/uL (4.8-10.8)
[2019-03-26 22:43] LABS: ALT (SGPT) 35 U/L (8-55); AST (SGOT) 53 U/L (5-34); Albumin 3.5 g/dL (3.4-4.8); Alkaline Phosphatase 83 U/L (40-150); Anion Gap 14 mmol/L (10-20); BUN (Urea Nitrogen) 29 mg/dL (8.4-25.7); Calc. Creatinine Clearance 49 mL/min (70-130); Calcium 9.4 mg/dL (7.8-10.44); Carbon Dioxide 23 mmol/L (23-31); Chloride 100 mmol/L (98-107); Estimated GFR-MDRD 62; Globulin 4.5 g/dL (2.4-3.5); Glucose 115 mg/dL (80-115); Lipase 18 U/L (8-78); Potassium 4.2 mmol/L (3.5-5.1); Sodium 133 mmol/L (136-145)
[2019-03-27] MEDS: Ipratropium Bromide 2.5 ml Neb NEB SCH ×4 (00:29→18:46)
[2019-03-27] MEDS: oxyCODONE 5 MG TAB PO PRN ×3 (03:40→18:21)
[2019-03-27] MEDS: Baclofen 10 MG TAB PO SCH ×3 (08:38→21:23)
[2019-03-27] MEDS: DULoxetine 60 MG CAP PO SCH (08:38)
[2019-03-27] MEDS: Tamsulosin HCl 0.4 MG CAP PO SCH (08:38)
[2019-03-27] MEDS: Famotidine/PF 20 mg/2ml Vial SLOW IVP SCH ×2 (08:38→21:23)
[2019-03-27] MEDS: Hydrochlorothiazide 25 MG TAB PO SCH (08:38)
[2019-03-27] MEDS: Aspirin 81 mg Enteric Coated Tablet PO SCH (08:39)
[2019-03-27] MEDS: Multivit, Therapeutic 1 TAB PO SCH (08:39)
[2019-03-27] MEDS: Amlodipine 5 MG TAB PO SCH (08:39)
[2019-03-27] MEDS: Pregabalin 75 MG CAP PO SCH ×4 (08:39→21:23)
[2019-03-27] MEDS: Azelastine 137 MCG/Spray 30 ML NS SCH (08:40)
[2019-03-27] MEDS: Carvedilol 6.25 MG TAB PO SCH ×2 (08:40→21:23)
[2019-03-27] MEDS: FINASTERIDE 1 MG PO SCH (08:40)
[2019-03-27] MEDS: Clopidogrel Bisulfate 75 MG TAB PO SCH (09:11)
--- NOTE | 2019-03-27 11:30 | PDOC.PN ---
- Subjective Encounter Start Date: 03/27/19 Encounter Start Time: 08:10 Patient seen and examined. No new complaints. No overnight events - Objective Resuscitation Status - Order Detail: 03/22/19 21:17 Resuscitation Status Routine Co-Sign Provider: Resuscitation Status: FULL: Full Resuscitation Discussed with: Patient and JOHN Reviewed: Yes Vital Signs & Weight: Vital Signs (12 hours) Temp Pulse Resp BP BP Pulse Ox 03/27/19 08:39 94/56 L 03/27/19 08:00 92 L 03/27/19 07:45 98.1 F 68 18 96/61 92 L 03/27/19 00:29 77 14 94 L Weight Weight 124 lb I&O: 03/26/19 03/27/19 03/28/19 06:59 06:59 06:59 Intake Total 1012 900 Output Total 1100 Balance -88 900 Result Diagrams: 03/26/19 22:12 03/26/19 22:12 Phys Exam - Physical Examination Constitutional: NAD HEENT: PERRLA, moist MMs, sclera anicteric Neck: no JVD, supple Respiratory: no wheezing, no rales, no rhonchi Cardiovascular: RRR, no significant murmur, no rub Gastrointestinal: soft, non-tender, no distention Musculoskeletal: no edema, pulses present Neurological: moves all 4 limbs Lymphatic: no nodes Psychiatric: normal affect Skin: no rash, normal turgor Dx/Plan (1) Cervical myelopathy with cervical radiculopathy Code(s): M47.12 - OTHER SPONDYLOSIS WITH MYELOPATHY, CERVICAL REGION Status: Acute (2) BPH (benign prostatic hyperplasia) Code(s): N40.0 - BENIGN PROSTATIC HYPERPLASIA WITHOUT LOWER URINRY TRACT SYMP Status: Chronic (3) CAD (coronary artery disease) Code(s): I25.10 - ATHSCL HEART DISEASE OF [place] CORONARY ARTERY W/O ANG PCTRS Status: Chronic (4) Chronic back pain Code(s): M54.9 - DORSALGIA, UNSPECIFIED; G89.29 - OTHER CHRONIC PAIN Status: Chronic (5) HTN (hypertension) Code(s): I10 - ESSENTIAL (PRIMARY) HYPERTENSION Status: Chronic (6) Lumbar stenosis Code(s): M48.061 - SPINAL STENOSIS, LUMBAR REGION WITHOUT NEUROGENIC HORACIO Status: Chronic (7) Spondylosis Code(s): M47.9 - SPONDYLOSIS, UNSPECIFIED Status: Chronic - Plan cont current plan of care, plan discussed w/ family, PT/OT * medication reviewed as below * symptomatic treatment * today MRI * further plan based on neurosurgery recommendation * but he will need rehab placement. Review of Systems - Review of Systems ENT: negative: Ear Pain, Ear Discharge, Nose Pain, Nose Discharge, Nose Congestion, Mouth Pain, Mouth Swelling, Throat Pain, Throat Swelling, Other Respiratory: negative: Cough, Dry, Shortness of Breath, Hemoptysis, SOB with Excertion, Pleuritic Pain, Sputum, Wheezing Cardiovascular: negative: chest pain, palpitations, orthopnea, paroxysmal nocturnal dyspnea, edema, light headedness, other Gastrointestinal: negative: Nausea, Vomiting, Abdominal Pain, Diarrhea, Constipation, Melena, Hematochezia, Other Genitourinary: negative: Dysuria, Frequency, Incontinence, Hematuria, Retention , Other Musculoskeletal: Neck Pain, Back Pain. negative: Shoulder Pain, Arm Pain, Hand Pain, Leg Pain, Foot Pain, Other - Medications/Allergies Allergies/Adverse Reactions: Allergies Allergy/AdvReac Type Severity Reaction Status Date / Time No Known Drug Allergies Allergy Verified 06/05/14 22:48 Medications: Current Medications Hydrocodone Bitart/Acetaminophen ([place] 5/325) 1 tab PO Q4H PRN PRN Reason: Moderate Pain (4-6) Last Admin: 03/25/19 20:05 Dose: 1 tab Albuterol Sulfate (Proventil Hfa) 2 puff INH Q4HR PRN PRN Reason: Dyspnea/Wheezing/SOB Amlodipine Besylate (Norvasc) 2.5 mg PO DAILY [facility] Last Admin: 03/27/19 08:39 Dose: Not Given Aspirin (Ecotrin) 81 mg PO DAILY [facility] Last Admin: 03/27/19 08:39 Dose: 81 mg Azelastine HCl (Azelastine) 0 ml NS DAILY [facility] Last Admin: 03/27/19 08:40 Dose: 1 spr Baclofen (Lioresal) 10 mg PO TID [facility] Last Admin: 03/27/19 08:38 Dose: 10 mg Carvedilol (Coreg) 6.25 mg PO BID [facility] Last Admin: 03/27/19 08:40 Dose: 6.25 mg Clopidogrel Bisulfate (Plavix) 75 mg PO DAILY [facility] Last Admin: 03/27/19 09:11 Dose: Not Given Docusate Sodium (Colace) 100 mg PO BID PRN PRN Reason: Constipation Last Admin: 03/26/19 05:28 Dose: 100 mg Duloxetine HCl (Cymbalta) 60 mg PO DAILY [facility] Last Admin: 03/27/19 08:38 Dose: 60 mg Famotidine (Pepcid) 20 mg SLOW IVP Q12HR [facility] Last Admin: 03/27/19 08:38 Dose: 20 mg Hydrochlorothiazide (Hydrochlorothiazide) 12.5 mg PO DAILY [facility] Last Admin: 03/27/19 08:38 Dose: 12.5 mg Ipratropium [place] (Atrovent) 2.5 ml NEB [id number] [facility] Last Admin: 03/27/19 07:22 Dose: 2.5 ml Multivitamins (Theragran) 1 tab PO DAILY [facility] Last Admin: 03/27/19 08:39 Dose: 1 tab Nicotine (Nicoderm Patch) 14 mg TD Q24HR [facility] Last Admin: 03/26/19 20:22 Dose: 14 mg Non-Formulary Medication (Finasteride [Finasteride]) 1 mg PO DAILY [facility] Last Admin: 03/27/19 08:40 Dose: Not Given Ondansetron HCl (Zofran Odt) 4 mg PO Q6H PRN PRN Reason: Nausea/Vomiting Ondansetron HCl (Zofran) 4 mg IVP Q6H PRN PRN Reason: Nausea/Vomiting Oxycodone HCl (Oxycodone Ir) 5 mg PO QID PRN PRN Reason: Pain Last Admin: 03/27/19 03:40 Dose: 5 mg Polyethylene Glycol (Miralax) 17 gm PO DAILYPRN PRN PRN Reason: Constipation Pravastatin Sodium (Pravachol) 40 mg PO HS [facility] Last Admin: 03/26/19 20:22 Dose: 40 mg Pregabalin (Lyrica) 75 mg PO QID [facility] Last Admin: 03/27/19 08:39 Dose: 75 mg Sodium Chloride (Flush - Normal Saline) 10 ml IVF Q12HR PRN PRN Reason: Saline Flush Last Admin: 03/25/19 20:07 Dose: 10 ml Sodium Chloride (Flush - Normal Saline) 10 ml IVF PRN PRN PRN Reason: Saline Flush Sodium Chloride ([place] Nasal [place] 0.65%) 0 ml EA NARE QID PRN PRN Reason: Congestion Tamsulosin HCl (Flomax) 0.8 mg PO DAILY [facility] Last Admin: 03/27/19 08:38 Dose: 0.8 mg
--- NOTE | 2019-03-27 12:18 | MRI ---
MRI of cervical spine without contrast: 03/27/2019 COMPARISON: None HISTORY: Progressive bilateral arm and leg weakness, frequent falls TECHNIQUE: Multiplanar multisequence MR imaging of the cervical spine provided without contrast FINDINGS: Study is significantly limited secondary to patient motion artifact. There is prominent degenerative change at the atlantoaxial interspace with posterior degenerative phelps nus dorsal to the tip of the dens. C2-3: Mild anterolisthesis measures 2-3 mm. Severe bilateral facet hypertrophy. There is fluid within bilateral facet joints. There is disc desiccation. Bilateral uncovertebral osteophyte formation noted. Severe central canal stenosis with cord flattening. Moderate left and severe right neural foraminal s tenosis noted. C3-4: Disc space narrowing and disc desiccation with disc bulge present. Severe central canal stenosi s. Effacement of the ventral thecal sac with mild cord flattening. Bilateral facet and uncovertebral osteophyte formation with severe bilateral neural foraminal stenosis. C4-5: There is disc space narrowing, disc desiccation, and disc bulge effacing the ventral thecal sac and causing moderate central canal stenosis. Bilateral facet and uncovertebral osteophyte formation with moderate/severe bilateral neural foraminal stenosis. C5-6: There is disc space narrowing and disc desiccation. Mild disc bulge and mild central canal sten osis present. Bilateral facet and uncovertebral osteophyte formation with moderate/severe bilateral neural foraminal stenosis. C6-7: Disc space narrowing and disc desiccation with disc bulge and moderate/severe central canal jelena nosis. Severe bilateral neural foraminal stenosis on the basis of facet and uncovertebral osteophyte formation. C7-T1: Mild anterolisthesis measuring 4 mm. Disc space narrowing and disc desiccation with disc bulge and mild/moderate central canal stenosis. Bilateral facet and uncovertebral osteophyte formation with severe bilateral neural foraminal stenosis. There is increased T2 signal intensity within the cervical cord suggesting myelomalacia and/or acute cord edema at the C2-3/C3-4 level associated with central canal stenosis and cord flattening. IMPRESSION: Motion limited examination demonstrating severe multilevel degenerative change within the cervical spine. Increased T2 signal intensity noted within the upper cervical cord as above. Fluid within bilateral facet joints at C2-3 may be on the basis of instability. Vic Perdomo made aware at 12:15 PM 03/27/2019
--- NOTE | 2019-03-27 17:20 | RAD ---
Cervical spine 5 views HISTORY: Neck pain. FINDINGS: There is 5 mm spondylolisthesis at the C2-3 level on the lateral view that does not change significantly upon flexion or extension. Disc space narrowing at each level. Minimal spondylolisthesis at the C3-4 level and minimal retrolisthesis at the C4-5 level also do not change u rylan flexion or extension. Vertebral body heights are maintained. Cervical spine not well evaluated on the frontal view. Metallic safety pin overlying the lower cervical spine on the lateral views is s hown to be extrinsic artifact on the frontal view. IMPRESSION: Prominent osseous degenerative changes of the cervical spine as detailed above.
[2019-03-27] MEDS: Pravastatin Sodium 40 MG TAB PO SCH (21:23)
[2019-03-27] MEDS: Nicotine 14 MG PATCH TD SCH (21:26)
[2019-03-28] MEDS: Ipratropium Bromide 2.5 ml Neb NEB SCH ×5 (00:03→21:22)
[2019-03-28] MEDS: oxyCODONE 5 MG TAB PO PRN ×3 (00:17→17:28)
[2019-03-28] MEDS: Famotidine/PF 20 mg/2ml Vial SLOW IVP SCH ×2 (08:22→20:20)
[2019-03-28] MEDS: Carvedilol 6.25 MG TAB PO SCH ×2 (08:22→20:20)
[2019-03-28] MEDS: Hydrochlorothiazide 25 MG TAB PO SCH (08:23)
[2019-03-28] MEDS: DULoxetine 60 MG CAP PO SCH (08:23)
[2019-03-28] MEDS: Tamsulosin HCl 0.4 MG CAP PO SCH (08:23)
[2019-03-28] MEDS: Baclofen 10 MG TAB PO SCH ×3 (08:23→20:20)
[2019-03-28] MEDS: Pregabalin 75 MG CAP PO SCH ×4 (08:23→20:33)
[2019-03-28] MEDS: Amlodipine 5 MG TAB PO SCH (08:23)
[2019-03-28] MEDS: Clopidogrel Bisulfate 75 MG TAB PO SCH (08:24)
[2019-03-28] MEDS: FINASTERIDE 1 MG PO SCH (08:24)
[2019-03-28] MEDS: Aspirin 81 mg Enteric Coated Tablet PO SCH (08:24)
[2019-03-28] MEDS: Azelastine 137 MCG/Spray 30 ML NS SCH (08:24)
[2019-03-28] MEDS: Multivit, Therapeutic 1 TAB PO SCH (08:24)
--- NOTE | 2019-03-28 11:17 | PDOC.PN ---
- Subjective Encounter Start Date: 03/28/19 Encounter Start Time: 08:10 Patient seen and examined. No new complaints. No overnight events - Objective Resuscitation Status - Order Detail: 03/22/19 21:17 Resuscitation Status Routine Co-Sign Provider: Resuscitation Status: FULL: Full Resuscitation Discussed with: Patient and JOHN Reviewed: Yes Vital Signs & Weight: Vital Signs (12 hours) Temp Pulse Resp BP Pulse Ox 03/28/19 08:23 65 03/28/19 08:00 97 03/28/19 07:42 98.1 F 65 20 114/74 97 03/28/19 06:31 77 16 96 03/28/19 00:03 77 12 96 Weight Weight 124 lb I&O: 03/27/19 03/28/19 03/29/19 06:59 06:59 06:59 Intake Total 900 500 Output Total 650 Balance 900 -150 Result Diagrams: 03/26/19 22:12 03/26/19 22:12 Radiology Reviewed by me: Yes Phys Exam - Physical Examination Constitutional: NAD HEENT: PERRLA, moist MMs, sclera anicteric Neck: no JVD, supple Respiratory: no wheezing, no rales, no rhonchi Cardiovascular: RRR, no significant murmur, no rub Gastrointestinal: soft, non-tender, no distention, positive bowel sounds Musculoskeletal: no edema, pulses present Neurological: non-focal, normal sensation Lymphatic: no nodes Psychiatric: normal affect Skin: no rash, normal turgor Dx/Plan (1) Cervical myelopathy with cervical radiculopathy Code(s): M47.12 - OTHER SPONDYLOSIS WITH MYELOPATHY, CERVICAL REGION Status: Acute (2) BPH (benign prostatic hyperplasia) Code(s): N40.0 - BENIGN PROSTATIC HYPERPLASIA WITHOUT LOWER URINRY TRACT SYMP Status: Chronic (3) CAD (coronary artery disease) Code(s): I25.10 - ATHSCL HEART DISEASE OF [place] CORONARY ARTERY W/O ANG PCTRS Status: Chronic (4) Chronic back pain Code(s): M54.9 - DORSALGIA, UNSPECIFIED; G89.29 - OTHER CHRONIC PAIN Status: Chronic (5) HTN (hypertension) Code(s): I10 - ESSENTIAL (PRIMARY) HYPERTENSION Status: Chronic (6) Lumbar stenosis Code(s): M48.061 - SPINAL STENOSIS, LUMBAR REGION WITHOUT NEUROGENIC HORACIO Status: Chronic (7) Spondylosis Code(s): M47.9 - SPONDYLOSIS, UNSPECIFIED Status: Chronic - Plan cont current plan of care, PT/OT, social services director * neurosurgery recommendation after MRI cervical spine pending * medication reviewed as below * symptomatic treatment * nurse case manager working on rehab placement * continue PT/OT and pain control. Review of Systems - Review of Systems ENT: negative: Ear Pain, Ear Discharge, Nose Pain, Nose Discharge, Nose Congestion, Mouth Pain, Mouth Swelling, Throat Pain, Throat Swelling, Other Respiratory: negative: Cough, Dry, Shortness of Breath, Hemoptysis, SOB with Excertion, Pleuritic Pain, Sputum, Wheezing Cardiovascular: negative: chest pain, palpitations, orthopnea, paroxysmal nocturnal dyspnea, edema, light headedness, other Gastrointestinal: negative: Nausea, Vomiting, Abdominal Pain, Diarrhea, Constipation, Melena, Hematochezia, Other Genitourinary: negative: Dysuria, Frequency, Incontinence, Hematuria, Retention , Other Musculoskeletal: Neck Pain, Back Pain. negative: Shoulder Pain, Arm Pain, Hand Pain, Leg Pain, Foot Pain, Other - Medications/Allergies Allergies/Adverse Reactions: Allergies Allergy/AdvReac Type Severity Reaction Status Date / Time No Known Drug Allergies Allergy Verified 06/05/14 22:48 Medications: Current Medications Hydrocodone Bitart/Acetaminophen ([place] 5/325) 1 tab PO Q4H PRN PRN Reason: Moderate Pain (4-6) Last Admin: 03/25/19 20:05 Dose: 1 tab Albuterol Sulfate (Proventil Hfa) 2 puff INH Q4HR PRN PRN Reason: Dyspnea/Wheezing/SOB Amlodipine Besylate (Norvasc) 2.5 mg PO DAILY [facility] Last Admin: 03/28/19 08:23 Dose: 2.5 mg Aspirin (Ecotrin) 81 mg PO DAILY [facility] Last Admin: 03/28/19 08:24 Dose: 81 mg Azelastine HCl (Azelastine) 0 ml NS DAILY [facility] Last Admin: 03/28/19 08:24 Dose: 1 spr Baclofen (Lioresal) 10 mg PO TID [facility] Last Admin: 03/28/19 08:23 Dose: 10 mg Carvedilol (Coreg) 6.25 mg PO BID [facility] Last Admin: 03/28/19 08:22 Dose: 6.25 mg Clopidogrel Bisulfate (Plavix) 75 mg PO DAILY [facility] Last Admin: 03/28/19 08:24 Dose: Not Given Docusate Sodium (Colace) 100 mg PO BID PRN PRN Reason: Constipation Last Admin: 03/26/19 05:28 Dose: 100 mg Duloxetine HCl (Cymbalta) 60 mg PO DAILY [facility] Last Admin: 03/28/19 08:23 Dose: 60 mg Famotidine (Pepcid) 20 mg SLOW IVP Q12HR [facility] Last Admin: 03/28/19 08:22 Dose: 20 mg Hydrochlorothiazide (Hydrochlorothiazide) 12.5 mg PO DAILY [facility] Last Admin: 03/28/19 08:23 Dose: 12.5 mg Ipratropium [place] (Atrovent) 2.5 ml NEB [id number] [facility] Last Admin: 03/28/19 06:31 Dose: 2.5 ml Multivitamins (Theragran) 1 tab PO DAILY [facility] Last Admin: 03/28/19 08:24 Dose: 1 tab Nicotine (Nicoderm Patch) 14 mg TD Q24HR [facility] Last Admin: 03/27/19 21:26 Dose: 14 mg Non-Formulary Medication (Finasteride [Finasteride]) 1 mg PO DAILY [facility] Last Admin: 03/28/19 08:24 Dose: Not Given Ondansetron HCl (Zofran Odt) 4 mg PO Q6H PRN PRN Reason: Nausea/Vomiting Ondansetron HCl (Zofran) 4 mg IVP Q6H PRN PRN Reason: Nausea/Vomiting Oxycodone HCl (Oxycodone Ir) 5 mg PO QID PRN PRN Reason: Pain Last Admin: 03/28/19 08:23 Dose: 5 mg Polyethylene Glycol (Miralax) 17 gm PO DAILYPRN PRN PRN Reason: Constipation Pravastatin Sodium (Pravachol) 40 mg PO HS [facility] Last Admin: 03/27/19 21:23 Dose: 40 mg Pregabalin (Lyrica) 75 mg PO QID [facility] Last Admin: 03/28/19 08:23 Dose: 75 mg Sodium Chloride (Flush - Normal Saline) 10 ml IVF Q12HR PRN PRN Reason: Saline Flush Last Admin: 03/25/19 20:07 Dose: 10 ml Sodium Chloride (Flush - Normal Saline) 10 ml IVF PRN PRN PRN Reason: Saline Flush Sodium Chloride ([place] Nasal [place] 0.65%) 0 ml EA NARE QID PRN PRN Reason: Congestion Tamsulosin HCl (Flomax) 0.8 mg PO DAILY [facility] Last Admin: 03/28/19 08:23 Dose: 0.8 mg
--- NOTE | 2019-03-28 13:27 | PRG ---
DATE OF SERVICE: 03/28/2019 This is Vic Perdomo PA-C dictating a report for Sin Garcia MD. This is a 15-minute subsequent patient evaluation, in which greater than 50% of the exam was spent in counseling and coordinating the patient's care. Remainder of the exam was spent in review of the patient's medical records and formulation of treatment plan and review of appropriate imaging studies. Mr. Vera was able to complete his cervical spine MRI yesterday and Dr. Garcia and I have reviewed this. The patient has significant central canal stenosis essentially through the C2 to C7 levels; however, it is most severe at C2-C3 with T2 signal abnormality. At this time, the patient will likely need surgical intervention. However, we will need a cervical spine x-ray to further determine what this may be. Likely, the patient will benefit from multilevel posterior cervical laminectomies without hardware. He will need to be cleared medically and from a Cardiology standpoint preoperatively. We also need to check a pre-albumin level to determine the patient's nutritional status and overall health. Due to the fact that he is on dual anti-platelet therapy, the earliest we will be able to do surgery on the patient is next week. We are okay with him continuing his 81 mg aspirin preoperatively should he be cleared by Cardiology in regard to ability to undergo surgery. The patient would likely benefit from inpatient rehab even now in order to improve his function preoperatively. However, more information will need to be gathered if he is even at all a surgical candidate in regard to his multiple comorbidities. We will also have [facility] set him for a [place] collar as he will need this postoperatively. He will follow up on his cervical spine x-ray and further determine the appropriate course of treatment including further surgical procedure. Please call with any changes in the patient's neurologic status. Otherwise, we will follow up with him tomorrow. Job ID: [id number]
[2019-03-28] MEDS: Pravastatin Sodium 40 MG TAB PO SCH (20:21)
[2019-03-28] MEDS: Nicotine 14 MG PATCH TD SCH (20:36)
[2019-03-28] MEDS: Acetaminophen 325 MG TAB PO PRN (22:33)
[2019-03-29] MEDS: oxyCODONE 5 MG TAB PO PRN ×3 (04:01→23:09)
[2019-03-29] MEDS: Ipratropium Bromide 2.5 ml Neb NEB SCH ×3 (06:05→18:29)
[2019-03-29] MEDS: Aspirin 81 mg Enteric Coated Tablet PO SCH (08:00)
[2019-03-29] MEDS: Baclofen 10 MG TAB PO SCH ×3 (08:00→20:00)
[2019-03-29] MEDS: DULoxetine 60 MG CAP PO SCH (08:00)
[2019-03-29] MEDS: Amlodipine 5 MG TAB PO SCH (08:00)
[2019-03-29] MEDS: Acetaminophen 325 MG TAB PO PRN ×2 (08:00→21:06)
[2019-03-29] MEDS: Hydrochlorothiazide 25 MG TAB PO SCH (08:00)
[2019-03-29] MEDS: Tamsulosin HCl 0.4 MG CAP PO SCH (08:00)
[2019-03-29] MEDS: Famotidine/PF 20 mg/2ml Vial SLOW IVP SCH ×2 (08:01→20:01)
[2019-03-29] MEDS: Carvedilol 6.25 MG TAB PO SCH ×2 (08:01→20:00)
[2019-03-29] MEDS: Pregabalin 75 MG CAP PO SCH ×4 (08:01→20:01)
[2019-03-29] MEDS: Multivit, Therapeutic 1 TAB PO SCH (08:01)
[2019-03-29] MEDS: Azelastine 137 MCG/Spray 30 ML NS SCH (08:02)
[2019-03-29] MEDS: FINASTERIDE 1 MG PO SCH (08:02)
[2019-03-29] MEDS: Clopidogrel Bisulfate 75 MG TAB PO SCH (08:02)
--- NOTE | 2019-03-29 09:45 | PRG ---
DATE OF SERVICE: 03/29/2019 I have reviewed Mr. Vera's CT scan of the cervical spine, MRI of the cervical spine, and cervical spine x-rays. Essentially, he has terrible stenosis from C2 all the way down to C7 with associated subluxation and kyphotic deformity notably throughout the subaxial cervical spine and subluxation at C2-C3, that is mobile. We will put him in a collar. His neurologic exam remains poor; however, he is able to raise his elbows up to near shoulder level and evidently has ambulated with a rolling walker. We have asked that his Plavix be stopped. I will plan for a multilevel decompression and fusion, likely C2 to T1 stabilization and C2 to C7 laminectomy for an attempt to try and save this man's neurologic function. I am planning on doing this on April 04. I am fine with a baby aspirin. He will need cardiac clearance. I am ordering a prealbumin as I suspect his nutritional status is likely terrible. Job ID: [id number]
--- NOTE | 2019-03-29 11:52 | PDOC.PN ---
- Subjective Encounter Start Date: 03/29/19 Encounter Start Time: 08:30 Patient seen and examined. No new complaints. No overnight events - Objective Resuscitation Status - Order Detail: 03/22/19 21:17 Resuscitation Status Routine Co-Sign Provider: Resuscitation Status: FULL: Full Resuscitation Discussed with: Patient and JOHN Reviewed: Yes Vital Signs & Weight: Vital Signs (12 hours) Temp Pulse Resp BP Pulse Ox 03/29/19 11:30 63 16 96 03/29/19 08:00 94 L 03/29/19 07:28 98.1 F 60 20 116/76 94 L 03/29/19 06:05 60 14 95 03/29/19 05:00 97.8 F 62 16 103/71 94 L Weight Weight 124 lb I&O: 03/28/19 03/29/19 03/30/19 06:59 06:59 06:59 Intake Total 500 960 Output Total 650 200 Balance -150 760 Result Diagrams: 03/26/19 22:12 03/26/19 22:12 Phys Exam - Physical Examination Constitutional: NAD HEENT: PERRLA, moist MMs, sclera anicteric Neck: no JVD, supple cervical collar+ Respiratory: no wheezing, no rales, no rhonchi Cardiovascular: RRR, no significant murmur, no rub Gastrointestinal: soft, non-tender, no distention, positive bowel sounds Musculoskeletal: no edema, pulses present Neurological: non-focal, normal sensation Lymphatic: no nodes Psychiatric: normal affect, A&O x 3 Skin: no rash, normal turgor Dx/Plan (1) Cervical myelopathy with cervical radiculopathy Code(s): M47.12 - OTHER SPONDYLOSIS WITH MYELOPATHY, CERVICAL REGION Status: Acute (2) BPH (benign prostatic hyperplasia) Code(s): N40.0 - BENIGN PROSTATIC HYPERPLASIA WITHOUT LOWER URINRY TRACT SYMP Status: Chronic (3) CAD (coronary artery disease) Code(s): I25.10 - ATHSCL HEART DISEASE OF [place] CORONARY ARTERY W/O ANG PCTRS Status: Chronic (4) Chronic back pain Code(s): M54.9 - DORSALGIA, UNSPECIFIED; G89.29 - OTHER CHRONIC PAIN Status: Chronic (5) HTN (hypertension) Code(s): I10 - ESSENTIAL (PRIMARY) HYPERTENSION Status: Chronic (6) Lumbar stenosis Code(s): M48.061 - SPINAL STENOSIS, LUMBAR REGION WITHOUT NEUROGENIC HORACIO Status: Chronic (7) Spondylosis Code(s): M47.9 - SPONDYLOSIS, UNSPECIFIED Status: Chronic - Plan cont current plan of care, PT/OT, director social welfare * neurosurgery recommendation noted * will notify cardiology for pre op clearance * will ask neurosurgery if can we discharge and later on he can be readmitted for surgery * medication reviewed as below * symptomatic treatment. Review of Systems - Review of Systems Respiratory: negative: Cough, Dry, Shortness of Breath, Hemoptysis, SOB with Excertion, Pleuritic Pain, Sputum, Wheezing Cardiovascular: negative: chest pain, palpitations, orthopnea, paroxysmal nocturnal dyspnea, edema, light headedness, other Gastrointestinal: negative: Nausea, Vomiting, Abdominal Pain, Diarrhea, Constipation, Melena, Hematochezia, Other Genitourinary: negative: Dysuria, Frequency, Incontinence, Hematuria, Retention , Other Musculoskeletal: negative: Neck Pain, Shoulder Pain, Arm Pain, Back Pain, Hand Pain, Leg Pain, Foot Pain, Other - Medications/Allergies Allergies/Adverse Reactions: Allergies Allergy/AdvReac Type Severity Reaction Status Date / Time No Known Drug Allergies Allergy Verified 06/05/14 22:48 Medications: Current Medications Acetaminophen (Tylenol) 650 mg PO Q6H PRN PRN Reason: Headache/Fever or Pain Last Admin: 03/29/19 08:00 Dose: 650 mg Hydrocodone Bitart/Acetaminophen ([place] 5/325) 1 tab PO Q4H PRN PRN Reason: Moderate Pain (4-6) Last Admin: 03/25/19 20:05 Dose: 1 tab Albuterol Sulfate (Proventil Hfa) 2 puff INH Q4HR PRN PRN Reason: Dyspnea/Wheezing/SOB Amlodipine Besylate (Norvasc) 2.5 mg PO DAILY [facility] Last Admin: 03/29/19 08:00 Dose: 2.5 mg Aspirin (Ecotrin) 81 mg PO DAILY [facility] Last Admin: 03/29/19 08:00 Dose: 81 mg Azelastine HCl (Azelastine) 0 ml NS DAILY [facility] Last Admin: 03/29/19 08:02 Dose: 1 spr Baclofen (Lioresal) 10 mg PO TID [facility] Last Admin: 03/29/19 08:00 Dose: 10 mg Carvedilol (Coreg) 6.25 mg PO BID [facility] Last Admin: 03/29/19 08:01 Dose: 6.25 mg Clopidogrel Bisulfate (Plavix) 75 mg PO DAILY [facility] Last Admin: 03/29/19 08:02 Dose: Not Given Docusate Sodium (Colace) 100 mg PO BID PRN PRN Reason: Constipation Last Admin: 03/26/19 05:28 Dose: 100 mg Duloxetine HCl (Cymbalta) 60 mg PO DAILY [facility] Last Admin: 03/29/19 08:00 Dose: 60 mg Famotidine (Pepcid) 20 mg SLOW IVP Q12HR [facility] Last Admin: 03/29/19 08:01 Dose: 20 mg Hydrochlorothiazide (Hydrochlorothiazide) 12.5 mg PO DAILY [facility] Last Admin: 03/29/19 08:00 Dose: 12.5 mg Ipratropium [place] (Atrovent) 2.5 ml NEB [id number] [facility] Last Admin: 03/29/19 11:30 Dose: 2.5 ml Multivitamins (Theragran) 1 tab PO DAILY [facility] Last Admin: 03/29/19 08:01 Dose: 1 tab Nicotine (Nicoderm Patch) 14 mg TD Q24HR [facility] Last Admin: 03/28/19 20:36 Dose: 14 mg Non-Formulary Medication (Finasteride [Finasteride]) 1 mg PO DAILY [facility] Last Admin: 03/29/19 08:02 Dose: Not Given Ondansetron HCl (Zofran Odt) 4 mg PO Q6H PRN PRN Reason: Nausea/Vomiting Ondansetron HCl (Zofran) 4 mg IVP Q6H PRN PRN Reason: Nausea/Vomiting Oxycodone HCl (Oxycodone Ir) 5 mg PO QID PRN PRN Reason: Pain Last Admin: 03/29/19 04:01 Dose: 5 mg Polyethylene Glycol (Miralax) 17 gm PO DAILYPRN PRN PRN Reason: Constipation Pravastatin Sodium (Pravachol) 40 mg PO HS [facility] Last Admin: 03/28/19 20:21 Dose: 40 mg Pregabalin (Lyrica) 75 mg PO QID [facility] Last Admin: 03/29/19 08:01 Dose: 75 mg Sodium Chloride (Flush - Normal Saline) 10 ml IVF Q12HR PRN PRN Reason: Saline Flush Last Admin: 03/25/19 20:07 Dose: 10 ml Sodium Chloride (Flush - Normal Saline) 10 ml IVF PRN PRN PRN Reason: Saline Flush Sodium Chloride ([place] Nasal [place] 0.65%) 0 ml EA NARE QID PRN PRN Reason: Congestion Last Admin: 03/29/19 00:17 Dose: 1 spray Tamsulosin HCl (Flomax) 0.8 mg PO DAILY [facility] Last Admin: 03/29/19 08:00 Dose: 0.8 mg
--- NOTE | 2019-03-29 15:43 | ULT ---
BILATERAL LOWER EXTREMITY VENOUS DUPLEX ULTRASOUND INCLUDING COLOR AND SPECTRAL DOPPLER IMAGING: HISTORY: Mild subcutaneous edema. FINDINGS: Exam performed from groin to ankle including visualized greater saphenous, common femoral, superficia l femoral, profunda femoral, popliteal, trifurcation, and posterior tibial vein regions. There is ph asic flow at all levels with normal compressibility and normal augmentation. No intraluminal thrombu s. IMPRESSION: No evidence for deep venous thrombosis. POS: [facility]PC
[2019-03-29] MEDS: Pravastatin Sodium 40 MG TAB PO SCH (20:01)
[2019-03-29] MEDS: Nicotine 14 MG PATCH TD SCH (21:05)
[2019-03-30] MEDS: Ipratropium Bromide 2.5 ml Neb NEB SCH ×2 (00:31→06:43)
[2019-03-30] MEDS ORDERED: Enoxaparin Sodium 40 MG/0.4 ML SYRINGE SC SCH (09:00)
--- NOTE | 2019-03-30 09:43 | PRG ---
DATE OF SERVICE: 03/30/2019 This is a 25-minute subsequent visit note, in which 25 minutes were spent reviewing the imaging record, evaluation, and examination of the patient, formulation of the plan. Greater than 50% time was spent in counseling on Rex Vera. I had a long discussion Mr. Vera today while he was imaging and his clinical picture certainly pretend a surgery in his future that would include what I outlined yesterday, cervical decompression posteriorly with stabilization. Unfortunately, his pre-albumin is at a level that is just substantially low and would preclude any effective healing. He needs to be in my opinion well over 20. In fact, I would prefer over 30. I have let our medical team know that they can resume his Plavix and continue his aspirin therapy. He needs a nutrition consult including calorie counts to boost his nutrition. I will arrange a followup in my clinic in 6 weeks. At this point, the only option we have his aggressive rehab. I will note that we could put him in a collar, although I am a bit concerned about his intolerance for it as he does not even have it on today. Job ID: [id number]
[2019-03-30] MEDS: Multivit, Therapeutic 1 TAB PO SCH (09:50)
[2019-03-30] MEDS: Baclofen 10 MG TAB PO SCH ×3 (09:50→20:03)
[2019-03-30] MEDS: Amlodipine 5 MG TAB PO SCH (09:50)
[2019-03-30] MEDS: Carvedilol 6.25 MG TAB PO SCH ×2 (09:50→20:03)
[2019-03-30] MEDS: Hydrochlorothiazide 25 MG TAB PO SCH (09:50)
[2019-03-30] MEDS: Aspirin 81 mg Enteric Coated Tablet PO SCH (09:50)
[2019-03-30] MEDS: Tamsulosin HCl 0.4 MG CAP PO SCH (09:50)
[2019-03-30] MEDS: DULoxetine 60 MG CAP PO SCH (09:50)
[2019-03-30] MEDS: Famotidine/PF 20 mg/2ml Vial SLOW IVP SCH ×2 (09:51→20:04)
[2019-03-30] MEDS: Azelastine 137 MCG/Spray 30 ML NS SCH (09:52)
[2019-03-30] MEDS: Pregabalin 75 MG CAP PO SCH ×4 (10:00→20:04)
[2019-03-30] MEDS ORDERED: Ipratropium Bromide 2.5 ml Neb NEB PRN (10:03)
--- NOTE | 2019-03-30 10:13 | PDOC.PN ---
- Subjective Encounter Start Date: 03/30/19 Encounter Start Time: 08:40 Patient seen and examined. No new complaints. No overnight events - Objective Resuscitation Status - Order Detail: 03/22/19 21:17 Resuscitation Status Routine Co-Sign Provider: Resuscitation Status: FULL: Full Resuscitation Discussed with: Patient and JOHN Reviewed: Yes Vital Signs & Weight: Vital Signs (12 hours) Temp Pulse Resp BP BP Pulse Ox 03/30/19 09:50 75 112/73 03/30/19 08:25 95 03/30/19 07:42 98.6 F 75 20 146/92 H 95 03/30/19 06:43 75 16 95 03/30/19 00:31 75 16 95 Weight Weight 124 lb I&O: 03/29/19 03/30/19 03/31/19 06:59 06:59 06:59 Intake Total 960 840 Output Total 200 Balance 760 840 Result Diagrams: 03/26/19 22:12 03/26/19 22:12 Phys Exam - Physical Examination Constitutional: NAD HEENT: PERRLA, moist MMs, sclera anicteric Neck: no JVD, supple Respiratory: no wheezing, no rales, no rhonchi Cardiovascular: RRR, no significant murmur, no rub Gastrointestinal: soft, non-tender, no distention, positive bowel sounds Musculoskeletal: no edema, pulses present Neurological: non-focal, normal sensation Lymphatic: no nodes Psychiatric: normal affect Skin: no rash, normal turgor Dx/Plan (1) Cervical myelopathy with cervical radiculopathy Code(s): M47.12 - OTHER SPONDYLOSIS WITH MYELOPATHY, CERVICAL REGION Status: Acute (2) BPH (benign prostatic hyperplasia) Code(s): N40.0 - BENIGN PROSTATIC HYPERPLASIA WITHOUT LOWER URINRY TRACT SYMP Status: Chronic (3) CAD (coronary artery disease) Code(s): I25.10 - ATHSCL HEART DISEASE OF [place] CORONARY ARTERY W/O ANG PCTRS Status: Chronic (4) Chronic back pain Code(s): M54.9 - DORSALGIA, UNSPECIFIED; G89.29 - OTHER CHRONIC PAIN Status: Chronic (5) HTN (hypertension) Code(s): I10 - ESSENTIAL (PRIMARY) HYPERTENSION Status: Chronic (6) Lumbar stenosis Code(s): M48.061 - SPINAL STENOSIS, LUMBAR REGION WITHOUT NEUROGENIC HORACIO Status: Chronic (7) Spondylosis Code(s): M47.9 - SPONDYLOSIS, UNSPECIFIED Status: Chronic - Plan cont current plan of care, social worker psychiatric * spoke with neurosurgery, because of his poor nutritional status, pt is very high risk for complication after surgery * at this point no plan for surgery * will consider discharge when rehab approved * medication reviewed as below * symptomatic treatment. Review of Systems - Review of Systems Eyes: negative: Pain, Vision Change, Conjunctivae Inflammation, Eyelid Inflammation, Redness, Other ENT: negative: Ear Pain, Ear Discharge, Nose Pain, Nose Discharge, Nose Congestion, Mouth Pain, Mouth Swelling, Throat Pain, Throat Swelling, Other Respiratory: negative: Cough, Dry, Shortness of Breath, Hemoptysis, SOB with Excertion, Pleuritic Pain, Sputum, Wheezing Cardiovascular: negative: chest pain, palpitations, orthopnea, paroxysmal nocturnal dyspnea, edema, light headedness, other Gastrointestinal: negative: Nausea, Vomiting, Abdominal Pain, Diarrhea, Constipation, Melena, Hematochezia, Other Genitourinary: negative: Dysuria, Frequency, Incontinence, Hematuria, Retention , Other Musculoskeletal: Neck Pain, Back Pain. negative: Shoulder Pain, Arm Pain, Hand Pain, Leg Pain, Foot Pain, Other - Medications/Allergies Allergies/Adverse Reactions: Allergies Allergy/AdvReac Type Severity Reaction Status Date / Time No Known Drug Allergies Allergy Verified 06/05/14 22:48 Medications: Current Medications Acetaminophen (Tylenol) 650 mg PO Q6H PRN PRN Reason: Headache/Fever or Pain Last Admin: 03/29/19 21:06 Dose: 650 mg Hydrocodone Bitart/Acetaminophen ([place] 5/325) 1 tab PO Q4H PRN PRN Reason: Moderate Pain (4-6) Last Admin: 03/25/19 20:05 Dose: 1 tab Albuterol Sulfate (Proventil Hfa) 2 puff INH Q4HR PRN PRN Reason: Dyspnea/Wheezing/SOB Amlodipine Besylate (Norvasc) 2.5 mg PO DAILY [facility] Last Admin: 03/30/19 09:50 Dose: 2.5 mg Aspirin (Ecotrin) 81 mg PO DAILY [facility] Last Admin: 03/30/19 09:50 Dose: 81 mg Azelastine HCl (Azelastine) 0 ml NS DAILY [facility] Last Admin: 03/30/19 09:52 Dose: 1 spr Baclofen (Lioresal) 10 mg PO TID [facility] Last Admin: 03/30/19 09:50 Dose: 10 mg Carvedilol (Coreg) 6.25 mg PO BID [facility] Last Admin: 03/30/19 09:50 Dose: 6.25 mg Docusate Sodium (Colace) 100 mg PO BID PRN PRN Reason: Constipation Last Admin: 03/26/19 05:28 Dose: 100 mg Duloxetine HCl (Cymbalta) 60 mg PO DAILY [facility] Last Admin: 03/30/19 09:50 Dose: 60 mg Enoxaparin Sodium (Lovenox) 40 mg SC 0900 [facility] Last Admin: 03/30/19 09:51 Dose: 40 mg Famotidine (Pepcid) 20 mg SLOW IVP Q12HR [facility] Last Admin: 03/30/19 09:51 Dose: 20 mg Hydrochlorothiazide (Hydrochlorothiazide) 12.5 mg PO DAILY [facility] Last Admin: 03/30/19 09:50 Dose: 12.5 mg Ipratropium [place] (Atrovent) 2.5 ml NEB Q4H PRN PRN Reason: SOB &/or Wheezing Multivitamins (Theragran) 1 tab PO DAILY [facility] Last Admin: 03/30/19 09:50 Dose: 1 tab Nicotine (Nicoderm Patch) 14 mg TD Q24HR [facility] Last Admin: 03/29/19 21:05 Dose: 14 mg Non-Formulary Medication (Finasteride [Finasteride]) 1 mg PO DAILY [facility] Last Admin: 03/29/19 08:02 Dose: Not Given Ondansetron HCl (Zofran Odt) 4 mg PO Q6H PRN PRN Reason: Nausea/Vomiting Ondansetron HCl (Zofran) 4 mg IVP Q6H PRN PRN Reason: Nausea/Vomiting Oxycodone HCl (Oxycodone Ir) 5 mg PO QID PRN PRN Reason: Pain Last Admin: 03/29/19 23:09 Dose: 5 mg Polyethylene Glycol (Miralax) 17 gm PO DAILYPRN PRN PRN Reason: Constipation Pravastatin Sodium (Pravachol) 40 mg PO HS [facility] Last Admin: 03/29/19 20:01 Dose: 40 mg Pregabalin (Lyrica) 75 mg PO QID [facility] Last Admin: 03/30/19 10:00 Dose: 75 mg Sodium Chloride (Flush - Normal Saline) 10 ml IVF Q12HR PRN PRN Reason: Saline Flush Last Admin: 03/25/19 20:07 Dose: 10 ml Sodium Chloride (Flush - Normal Saline) 10 ml IVF PRN PRN PRN Reason: Saline Flush Sodium Chloride ([place] Nasal [place] 0.65%) 0 ml EA NARE QID PRN PRN Reason: Congestion Last Admin: 03/29/19 00:17 Dose: 1 spray Tamsulosin HCl (Flomax) 0.8 mg PO DAILY [facility] Last Admin: 03/30/19 09:50 Dose: 0.8 mg
[2019-03-30] MEDS: FINASTERIDE 1 MG PO SCH (11:19)
[2019-03-30] MEDS: oxyCODONE 5 MG TAB PO PRN (12:37)
--- NOTE | 2019-03-30 15:20 | DIS ---
DATE OF ADMISSION: 03/22/2019 DATE OF DISCHARGE: 03/30/2019 PRIMARY CARE PHYSICIAN: Thu Philip as well as Dr. Laith Amin. DISCHARGE DISPOSITION: Rehab. PRIMARY DISCHARGE DIAGNOSIS: Cervical myelopathy with upper and lower extremity weakness. SECONDARY DISCHARGE DIAGNOSES: Benign enlargement of prostate; coronary artery disease; nonischemic cardiomyopathy with AICD; chronic low back pain; hypertension; lumbar stenosis; spondylosis; malnutrition, severe. PRIMARY PROCEDURE/OPERATION: None. RADIOLOGICAL INVESTIGATION: Lumbar spine CT scan, thoracic spine CT scan, CT brain, CT cervical spine, chest x-ray, MRI cervical spine, cervical spine x-ray, ultrasound lower extremity. SIGNIFICANT LABORATORY DATA: Hemoglobin 16.6. Creatinine 1.18, prealbumin 9.0, lipase 18. DISCHARGE MEDICATIONS: 1. ProAir HFA two puffs q.4 hourly p.r.n. 2. Amlodipine 2.5 mg daily. 3. Aspirin 81 mg daily. 4. Azelastine nasal spray daily. 5. Lioresal 10 mg t.i.d. 6. Coreg 6.25 mg b.i.d. 7. Plavix 75 mg daily. 8. Colace 100 mg p.o. b.i.d. 9. Cymbalta 60 mg daily. 10. Proscar 1 mg daily. 11. Hydrochlorothiazide 12.5 mg p.o. daily. 12. Multivitamin one tablet p.o. daily. 13. Oxycodone 5 mg q.i.d. p.r.n. 14. Pravastatin 40 mg p.o. at bedtime. 15. Lyrica 75 mg q.i.d. 16. Flomax 0.8 mg daily. 17. Spiriva 18 mcg inhalation daily. CONTRAINDICATION: None. CODE STATUS: Full code. INPATIENT MOLD CHIPPER: Dr. Coley was following while in the hospital. Dr. Garcia was following while in hospital. TEST RESULT PENDING ON DISCHARGE: None. ALLERGIES: NO KNOWN DRUG ALLERGIES. DISCHARGE PLAN: Post hospital, the patient will be discharged to rehab facility for more PT/OT. The patient will follow up with Dr. Garcia in 1 or 2 weeks for consideration of surgery. HOSPITAL COURSE: A 64-year-old male, who was admitted by Dr. Danielle. Please see H and P dictated on the day of admission on March 22, 2019, H and P dictated by Geetha Suarez. The patient was presented to the emergency room with upper extremity and lower extremity weakness. He was having difficulty ambulating and he was having neck pain and low back pain. He was also having vertigo from cervical spondylosis as well as dizziness. He was also having difficulty maintaining balance because of that. His clinical presentation was consistent with cervical myelopathy and he was having early quadriplegic symptoms. Neurosurgery was following while in the hospital and they recommended MRI cervical spine. After MRI cervical spine, we found that the patient does have multilevel degenerative spine disease with cervical spondylosis and neurosurgeon pretty much agreed with that, that he will need surgery for his spine stabilization, but this patient is also at very high risk for a complication because of his poor nutritional status with prealbumin 9, and that is why they recommended dietary evaluation, which we did during this admission, and the patient will need more nutritional support and if his prealbumin is increasing, then Neurosurgery will decide about doing surgery, and this patient is pretty much high risk for postoperative complication because of his previous infection. At this point, the patient has cervical collar, which he needs to use as directed. Neurosurgeon cleared that they are not going to do surgery in the near future until his nutritional status improves and he will follow up with Neurosurgery in their clinic, and at that time, they will repeat prealbumin level and decide about surgical plan with him. At this point, this patient needs PT/OT and that is why we are arranging rehabilitation. Otherwise, this patient is medically stable. Cardiology cleared him for myelogram, and we resumed aspirin and Plavix on discharge as well, and before surgery, the neurosurgeon will decide about antiplatelet therapy. At this point, I have seen and examined the patient at bedside today. All review of systems reviewed with him and negative. Plan of care discussed with the patient, and paperwork for discharge done, discharge medication reconciliation done. Total time spent on discharge day, 31 minutes. Job ID: [id number]
[2019-03-30] MEDS: Pravastatin Sodium 40 MG TAB PO SCH (20:04)
[2019-03-30 20:06] VITALS: BP 126/79
[2019-03-30 21:34] VITALS: TEMP 98.1
== END 2019-03-30 21:18 | DRG 551 ==
LOC: ERS 16:10 → OBSVTOIN 20:06 → T4-A 20:06
PROVIDERS: ADMIT Internal Medicine; ATTEND Internal Medicine
DX: M47.12 Other spondylosis with myelopathy, cervical region (principal); G82.50 Quadriplegia, unspecified; E43 Unspecified severe protein-calorie malnutrition; I42.8 Other cardiomyopathies; I50.9 Heart failure, unspecified; J44.9 Chronic obstructive pulmonary disease, unspecified; M48.061 Spinal stenosis, lumbar region without neurogenic claudication; I11.0 Hypertensive heart disease with heart failure; N40.0 Benign prostatic hyperplasia without lower urinary tract symptoms; I25.10 Atherosclerotic heart disease of native coronary artery without angina pectoris; F32.9 Major depressive disorder, single episode, unspecified; F17.210 Nicotine dependence, cigarettes, uncomplicated; Z68.22 Body mass index [BMI] 22.0-22.9, adult; I25.2 Old myocardial infarction; Z95.5 Presence of coronary angioplasty implant and graft; Z95.0 Presence of cardiac pacemaker; Z95.1 Presence of aortocoronary bypass graft; Z79.82 Long term (current) use of aspirin; Z79.899 Other long term (current) drug therapy
CPT/HCPCS: 36415; 70450; 71045; 72050; 72125; 72128; 72131; 72141; 80048; 80053; 83690; 84134; 84484; 85025; 93005; 93970; 94640; J1650; S0028

== ENCOUNTER 2019-06-08 21:20 | Emergency (ER) | payer MEDICARE, MEDICAID ==
[2019-06-08 22:21] LABS: #Eosinphils 0.1 thou/uL (0.0-0.7); #Lymphocytes 1.6 thou/uL (1.20-3.40); #Neutrophils 7.7 thou/uL (1.40-6.50); %Basophils 0.1 % (0.0-1.0); %Eosinophils 1.2 % (0.0-10.0); %Lymphocytes 15.1 % (21.0-51.0); %Monocytes 9.4 % (0.0-10.0); %Neutrophils 74.1 % (42.0-75.0); Hemoglobin 15.1 g/dL (14.0-18.0); Mean Corpuscular HGB CONC 31.7 g/dL (32.0-36.0); Mean Corpuscular Volume 91.4 fL (78.0-98.0); Mean Platelet Volume 9.1 fL (7.4-10.4); Platelet Count 153 thou/uL (130-400); RBC Distribution Width 13.3 % (11.5-14.5); Red Blood Cell (RBC) Count 5.21 mill/uL (4.70-6.10); White Blood Cell (WBC) Count 10.4 thou/uL (4.8-10.8)
[2019-06-08 22:34] LABS: ALT (SGPT) 40 U/L (8-55); AST (SGOT) 47 U/L (5-34); Alkaline Phosphatase 138 U/L (40-150); Anion Gap 11 mmol/L (10-20); BUN (Urea Nitrogen) 25 mg/dL (8.4-25.7); Bilirubin, Total 0.6 mg/dL (0.2-1.2); Calc. Creatinine Clearance 0 mL/min (70-130); Calcium 9.2 mg/dL (7.8-10.44); Carbon Dioxide 19 mmol/L (23-31); Chloride 112 mmol/L (98-107); Estimated GFR-MDRD Greater than 90; Globulin 4.2 g/dL (2.4-3.5); Glucose 99 mg/dL (80-115); Potassium 3.8 mmol/L (3.5-5.1); Protein, Total 7.2 g/dL (5.8-8.1); Sodium 138 mmol/L (136-145)
[2019-06-08] MEDS ORDERED: Ondansetron PF 4 MG/2 ML Vial ONE (22:42)
--- NOTE | 2019-06-08 22:48 | RAD ---
EXAM: Portable chest PROVIDED CLINICAL HISTORY: Dyspnea COMPARISON: 03/22/2019 FINDINGS: Cardiac and mediastinal silhouette is unchanged in appearance. Median sternotomy changes and left sub clavian cardiac pacing device are redemonstrated. No focal consolidation, pleural fluid or pneumothorax evident. IMPRESSION: No evidence for an acute cardiopulmonary process.
[2019-06-08 23:45] LABS: Bilirubin Negative (Negative); Blood, Urine Negative (Negative); Clarity Clear (Clear); Glucose, Urine (Dipstick) Normal (Negative); Leukocyte Negative Leu/uL (Negative); Nitrite Negative (Negative); Protein, Urine (Dipstick) Negative (Neg-Trace); Urobilinogen 3 mg/dL (Less than 2)
--- NOTE | 2019-06-10 13:05 | EKG ---
Test Reason : Blood Pressure : / mmHG Vent. Rate : 081 BPM Atrial Rate : 081 BPM P-R Int : 156 ms QRS Dur : 122 ms QT Int : 366 ms P-R-T Axes : 053 -19 094 degrees QTc Int : 425 ms Normal sinus rhythm Left atrial enlargement Inferior infarct , age undetermined Abnormal ECG Confirmed by RADHA MCGOWAN, CARLOS Mg ([id number]), editorial director ZAYNAB TAMEZ ([id number]) on 06/10/2019 1:05:21 PM Referred By: Confirmed By:CARLOS GARCIA MD
== END 2019-06-09 01:44 ==
LOC: ERS 21:20
DX: R53.83 Other fatigue (principal); R05 Cough; R09.02 Hypoxemia; T50.905A Adverse effect of unspecified drugs, medicaments and biological substances, initial encounter; J44.9 Chronic obstructive pulmonary disease, unspecified; I25.10 Atherosclerotic heart disease of native coronary artery without angina pectoris; I11.0 Hypertensive heart disease with heart failure; I50.9 Heart failure, unspecified; F32.9 Major depressive disorder, single episode, unspecified; F17.210 Nicotine dependence, cigarettes, uncomplicated; Z79.899 Other long term (current) drug therapy
CPT/HCPCS: 36415; 51701; 71045; 80053; 81003; 84484; 85025; 87040; 87086; 87149; 87804; 93005; 96361; 96374; J2405

== ENCOUNTER 2019-06-14 17:30 | Inpatient (IN) | payer MEDICARE, MEDICAID ==
[2019-06-14 18:23] LABS: #Eosinphils 0.2 thou/uL (0.0-0.7); #Lymphocytes 1.6 thou/uL (1.20-3.40); #Monocytes 1.2 thou/uL (0.11-0.59); #Neutrophils 13.6 thou/uL (1.40-6.50); %Basophils 0.2 % (0.0-1.0); %Eosinophils 1.1 % (0.0-10.0); %Lymphocytes 9.8 % (21.0-51.0); %Monocytes 7.2 % (0.0-10.0); %Neutrophils 81.7 % (42.0-75.0); Hemoglobin 14.6 g/dL (14.0-18.0); Mean Corpuscular HGB CONC 32.9 g/dL (32.0-36.0); Mean Corpuscular Hemoglobin 29.5 pg (27.0-31.0); Mean Corpuscular Volume 89.7 fL (78.0-98.0); Mean Platelet Volume 8.6 fL (7.4-10.4); Platelet Count 177 thou/uL (130-400); RBC Distribution Width 13.1 % (11.5-14.5); Red Blood Cell (RBC) Count 4.94 mill/uL (4.70-6.10); White Blood Cell (WBC) Count 16.7 thou/uL (4.8-10.8)
--- NOTE | 2019-06-14 18:42 | RAD ---
PORTABLE CHEST: 06/14/19 HISTORY: Dyspnea. COMPARISON: 06/08/19. There is new infiltrate and atelectasis in the right lung base. Left perihilar infiltrate also appear s more prominent on the prior study. AICD leads again noted and are unchanged. Upper lung rizzo are clear. IMPRESSION: New right basilar infiltrate and question left perihilar infiltrate when compared to prior study. POS: OFF
[2019-06-14 18:44] LABS: ALT (SGPT) 33 U/L (8-55); AST (SGOT) 47 U/L (5-34); Alkaline Phosphatase 154 U/L (40-150); Anion Gap 13 mmol/L (10-20); BUN (Urea Nitrogen) 17 mg/dL (8.4-25.7); Bilirubin, Total 0.8 mg/dL (0.2-1.2); Calc. Creatinine Clearance 0 mL/min (70-130); Calcium 9.4 mg/dL (7.8-10.44); Carbon Dioxide 20 mmol/L (23-31); Chloride 109 mmol/L (98-107); Estimated GFR-MDRD Greater than 90; Globulin 4.9 g/dL (2.4-3.5); Glucose 110 mg/dL (80-115); Potassium 3.2 mmol/L (3.5-5.1); Protein, Total 7.9 g/dL (5.8-8.1); Sodium 139 mmol/L (136-145)
[2019-06-14] MEDS ORDERED: Piperacillin/Tazobactam 4.5 GM VIAL ONE (19:05)
[2019-06-14] MEDS ORDERED: Acetaminophen 500 MG TAB ONE (20:53)
[2019-06-15] MEDS ORDERED: Spiriva 18 MCG CAP (Box of 5 Caps) INH PRN (00:43)
[2019-06-15] MEDS ORDERED: PROVENTIL INHALER 6.7 G (200 INHALATIONS) INH PRN (00:43)
[2019-06-15] MEDS ORDERED: Morphine ER 30 MG TAB PO SCH (00:45)
[2019-06-15 00:46] VITALS: BMI 20.7
[2019-06-15] MEDS ORDERED: Pregabalin 75 MG CAP PO SCH (01:00)
[2019-06-15] MEDS ORDERED: Ondansetron ODT 4 MG TAB PO PRN (06:30)
[2019-06-15] MEDS ORDERED: Acetaminophen 650 MG Suppository PR PRN (06:30)
[2019-06-15] MEDS ORDERED: Acetaminophen 325 MG TAB PO PRN (06:30)
[2019-06-15] MEDS ORDERED: Ondansetron PF 4 MG/2 ML Vial IVP PRN (06:30)
[2019-06-15] MEDS: Ipratropium Bromide 2.5 ml Neb NEB SCH ×3 (06:37→18:26)
[2019-06-15] MEDS: Piperacillin/Tazobactam 4.5 GM in Sodium Chloride 0.9% 100 ML IVPB SCH ×3 (07:52→22:27)
[2019-06-15] MEDS: Enoxaparin Sodium 40 MG/0.4 ML SYRINGE SC SCH (07:53)
[2019-06-15] MEDS: busPIRone HCl 10 MG TAB PO SCH ×2 (07:54→20:15)
[2019-06-15] MEDS: Aspirin 81 mg Enteric Coated Tablet PO SCH (07:54)
[2019-06-15] MEDS: Morphine ER 30 MG TAB PO SCH ×2 (07:55→20:13)
[2019-06-15] MEDS: Ascorbic Acid 500 mg Chewable Tablet PO SCH ×2 (07:55→20:13)
[2019-06-15] MEDS: DULoxetine 60 MG CAP PO SCH (07:55)
[2019-06-15] MEDS: Thiamine 100 MG TAB PO SCH (07:55)
[2019-06-15] MEDS: Clopidogrel Bisulfate 75 MG TAB PO SCH (07:55)
[2019-06-15] MEDS: Tamsulosin HCl 0.4 MG CAP PO SCH (07:55)
[2019-06-15] MEDS: Carvedilol 3.125 MG TAB PO SCH ×3 (07:55→22:16)
[2019-06-15] MEDS: Senokot 8.6 MG TAB PO SCH ×2 (07:55→20:14)
[2019-06-15] MEDS: Pregabalin 75 MG CAP PO SCH ×4 (07:57→20:14)
[2019-06-15] MEDS ORDERED: Prevnar 13-Val Conj/PF 0.5 ML SYRINGE IM ONE (09:00)
[2019-06-15] MEDS ORDERED: Piperacillin/Tazobactam 4.5 GM VIAL ONE (14:04)
--- NOTE | 2019-06-15 15:29 | CT ---
CT CHEST WITHOUT CONTRAST CLINICAL INDICATION: Abnormal chest x-ray. Dyspnea. COMPARISON: 08/15/2011. FINDINGS: Aorta: Vascular calcifications are seen in the thoracic aorta as well as involving the coronary arter ies. Lungs: There are bibasilar areas of consolidation greater on the right with associated patchy parench ymal lung changes. In addition, there is an area of groundglass opacification in the left upper lobe with additional patchy densities in the left upper lobe. Air bronchograms are seen in the area o f consolidation at the right lung base. No pleural effusion is identified. Emphysematous changes are seen predominantly in the upper lobes bilaterally. There is a low-density area seen in the right posterior lateral aspect of the mid thoracic trachea probably due to secretions. This does not have the appearance to suggest a mass like lesion. Mediastinum: Lack of intravenous contrast limits evaluation, but no enlarged lymph nodes are present according to CT size criteria. Thyroid gland: Normal CT appearance. Osseous structures: Postsurgical changes related to median sternotomy are seen with several fractured sternal wires, and there is dehiscence of the sternum. This is a stable finding and may be postoperative in origin. There has been no interval change in the appearance of the sternum when comp ared to the study in 2010. Multilevel degenerative changes are seen in the lower thoracic spine which have progressed when jonathan red to prior study including what appears to be dominant endplate degenerative changes at the T12-L1 and L1-2 levels as well as at L2-3 level. There is incomplete visualization of postsurgical ch anges related to posterior fusion of the lumbar spine. There is right convex curvature of the thoracolumbar spine. Chest wall: A dual-lead left subclavian AICD device is again noted in place. Upper abdomen: Within normal limits for phase of imaging. IMPRESSION: 1. Bibasilar consolidation larger in size on the right suggesting bibasilar pneumonia with associated patchy parenchymal densities also in the lower lobes bilaterally with groundglass opacity in the left upper lobe. Findings are likely related to multifocal pneumonia, and atypical pneumonia is a pos sibility. Follow-up to resolution is recommended 2. Multilevel degenerative changes in the lower thoracic and upper lumbar spine. There are prominent endplate irregularities involving the T12-L1 level which is thought to most likely be attributable to prominent endplate degenerative changes. Discitis and osteomyelitis would be difficult to entirely exclude based on this exam, but prominent degenerative changes are favored. 3. Evidence of COPD. 4. Chronic changes of the sternum with evidence of postsurgical changes.
--- NOTE | 2019-06-15 19:15 | HP ---
REASON FOR ADMISSION: Pneumonia. HISTORY OF PRESENTING ILLNESS: The patient came to ER with complaints of shortness of breath. He has had this for nearly 2 weeks or so and has been progressively getting worse. On arrival, his saturations were 70% on room air. It promptly went up to 100% on 2 L nasal cannula. He is a resident of [facility]. He has an expectoration of yellow sputum. No complaints of fever at [place], but on arrival here had a temperature of 99.2 degrees Fahrenheit. He is currently feeling better with nebulization and oxygen. No complaints of chest pain, palpitation, PND, or orthopnea. PAST MEDICAL AND SURGICAL HISTORY: History of hypertension, coronary artery disease with prior stent, AICD, CABG, ACL repair, lower spine surgery, multilevel degenerative change of C-spine, sternal dehiscence post CABG due to likely COPD flare up. Prior EF of 20% to 25% in May of 2014 with dilated LV and global hypokinesis, moderate to severe mitral regurgitation on the echo then. CURRENT MEDICATIONS: 1. Albuterol nebulizer q.6 hourly p.r.n. 2. Aspirin 81 mg p.o. daily. 3. Baclofen 10 mg p.o. three times daily p.r.n. for back pain. 4. Buspirone 15 mg p.o. twice daily. 5. Carvedilol 3.125 mg p.o. twice daily. 6. Plavix 75 mg p.o. daily. 7. Duloxetine 60 mg p.o. daily. 8. Finasteride 5 mg p.o. daily. 9. Folic acid 1 mg p.o. daily. 10. Melatonin 3 mg three tablets p.o. at bedtime p.r.n. for insomnia. 11. MS Contin extended release 30 mg p.o. twice daily. 12. Nicotine patch 21 mg daily. 13. Wilmore-3 fatty acid 1 capsule daily. 14. Pravastatin 40 mg p.o. daily. 15. Lyrica 75 mg p.o. 4 times daily. 16. Spiriva inhaler 18 mcg daily. 17. Flomax 0.4 mg 2 capsules p.o. daily. 18. Multivitamin one tablet daily. 19. Thiamine 100 mg p.o. daily. 20. Topiramate 100 mg p.o. nightly. 21. Vitamin C 500 mg p.o. daily. 22. Zinc tablet 200 mg p.o. daily. ALLERGIES: NO KNOWN DRUG ALLERGIES. PERSONAL HISTORY: Quit smoking 3 months back. Does not abuse alcohol or drugs. He is currently a resident of [facility]. FAMILY HISTORY: Mother of DC at the age of 65 years. Father of DC as well at the age of 84 years. Has two sisters, whom were alive. CODE STATUS: Full. REVIEW OF SYSTEMS: CONSTITUTIONAL: Negative for weight loss or gain, ability to conduct usual activities. SKIN: Negative for rash, itching. EYES: Negative for double vision, pain. ENT/MOUTH: Negative for nose bleeding, neck stiffness, pain, tenderness. CARDIOVASCULAR: Negative for palpitations, dyspnea on exertion, orthopnea. RESPIRATORY: Negative for shortness of breath, wheezing, cough, hemoptysis, fever or night sweats. GASTROINTESTINAL: Negative for poor appetite, abdominal pain, heartburn, nausea , vomiting, constipation, or diarrhea. GENITOURINARY: Negative for urgency, frequency, dysuria, nocturia. MUSCULOSKELETAL: Negative for pain, swelling. NEUROLOGIC/PSYCHIATRIC: Negative for anxiety, depression. ALLERGY/IMMUNOLOGIC: Negative for skin rash, bleeding tendency. PHYSICAL EXAMINATION: GENERAL: The patient is a 64-year-old male, who is currently not in any acute distress. VITAL SIGNS: Blood pressure 106/70, pulse 72 per minute, respiratory rate 18 per minute, temperature 98 degrees Fahrenheit, saturating 92% on 2 L nasal cannula. NECK: Supple. No elevated JVD. HEENT: Eyes; extraocular muscles intact. Pupils reacting to light. Oral cavity, mucous membranes are dry. No exudates or congestion. CARDIOVASCULAR: S1 and S2 heard, regular rhythm. RESPIRATORY: Air entry 1+ bilateral. Scattered rhonchi plus bilateral. ABDOMEN: Soft. Bowel sounds heard. No tenderness, rigidity, or guarding. EXTREMITIES: No peripheral edema or calf tenderness. VASCULAR: Peripheral pulses 1+ bilateral. No ischemic ulcerations or gangrene. CENTRAL NERVOUS SYSTEM: No gross focal deficits noted. The patient is alert, awake, and oriented well. PSYCHIATRIC: The patient's mood is euthymic. No hallucinations or delusions. LABORATORY DATA: Potassium 3.2, serum bicarb 20, BUN 17, creatinine 0.7, AST 47 , ALT 33, alkaline phosphatase 154. BNP 219. Troponin x1 is negative. Albumin is 3.0. White count of 16, H and H 14 and 44, platelet count 177 with 81% neutrophils. CT chest done shows bibasilar consolidation, large on the right. Also, there are findings of multifocal pneumonia. CLINICAL IMPRESSION AND PLAN: The patient will be admitted to medical floor for bibasilar pneumonia. He will be placed on vancomycin and Zosyn. DuoNeb q.6 hourly. We will also obtain consultation with Pulmonology on-call. The patient is on multiple narcotics and psychotropic medications. It is unclear if he aspirated. We will continue aspirin, Lipitor, buspirone, Coreg, Plavix, Cymbalta, MS Contin 30 mg twice daily, melatonin at bedtime, Lyrica, Flomax, topiramate, and Spiriva inhaler as before. Code status was discussed with the patient and he wants to be a full code. Job ID: [id number] MTDD
[2019-06-15] MEDS: Atorvastatin Calcium 10 MG TAB PO SCH (20:14)
[2019-06-15] MEDS: Vancomycin HCl 1 GM in Premix Bag 1 BAG IVPB SCH (20:16)
[2019-06-15] MEDS: Topiramate 100 MG TAB PO SCH (20:17)
[2019-06-15] MEDS: Melatonin 3 MG TAB PO SCH (22:17)
[2019-06-15] MEDS ORDERED: Guaifenesin DM 100-10/5 ML UDCUP PO PRN (23:25)
[2019-06-16] MEDS: guaiFENesin 200 MG TAB PO PRN ×3 (00:07→16:25)
[2019-06-16] MEDS: Piperacillin/Tazobactam 4.5 GM in Sodium Chloride 0.9% 100 ML IVPB SCH ×3 (06:14→23:45)
[2019-06-16 06:31] LABS: #Eosinphils 0.3 thou/uL (0.0-0.7); #Lymphocytes 1.6 thou/uL (1.20-3.40); #Monocytes 0.9 thou/uL (0.11-0.59); #Neutrophils 9.7 thou/uL (1.40-6.50); %Basophils 0.1 % (0.0-1.0); %Eosinophils 2.7 % (0.0-10.0); %Lymphocytes 12.6 % (21.0-51.0); %Monocytes 7.2 % (0.0-10.0); %Neutrophils 77.5 % (42.0-75.0); Hemoglobin 12.8 g/dL (14.0-18.0); Mean Corpuscular HGB CONC 32.9 g/dL (32.0-36.0); Mean Corpuscular Hemoglobin 29.3 pg (27.0-31.0); Mean Platelet Volume 8.5 fL (7.4-10.4); Platelet Count 196 thou/uL (130-400); RBC Distribution Width 13.2 % (11.5-14.5); Red Blood Cell (RBC) Count 4.38 mill/uL (4.70-6.10); White Blood Cell (WBC) Count 12.5 thou/uL (4.8-10.8)
[2019-06-16 06:51] LABS: Anion Gap 11 mmol/L (10-20); BUN (Urea Nitrogen) 19 mg/dL (8.4-25.7); Calc. Creatinine Clearance 79 mL/min (70-130); Carbon Dioxide 20 mmol/L (23-31); Chloride 110 mmol/L (98-107); Estimated GFR-MDRD Greater than 90; Glucose 92 mg/dL (80-115); Potassium 3.4 mmol/L (3.5-5.1); Sodium 138 mmol/L (136-145)
[2019-06-16] MEDS: Ascorbic Acid 500 mg Chewable Tablet PO SCH ×2 (07:39→21:12)
[2019-06-16] MEDS: Tamsulosin HCl 0.4 MG CAP PO SCH (07:39)
[2019-06-16] MEDS: Senokot 8.6 MG TAB PO SCH ×2 (07:39→21:12)
[2019-06-16] MEDS: Clopidogrel Bisulfate 75 MG TAB PO SCH (07:40)
[2019-06-16] MEDS: busPIRone HCl 10 MG TAB PO SCH ×2 (07:40→21:12)
[2019-06-16] MEDS: Aspirin 81 mg Enteric Coated Tablet PO SCH (07:40)
[2019-06-16] MEDS: Thiamine 100 MG TAB PO SCH (07:40)
[2019-06-16] MEDS: Morphine ER 30 MG TAB PO SCH ×2 (07:41→21:13)
[2019-06-16] MEDS: DULoxetine 60 MG CAP PO SCH (07:41)
[2019-06-16] MEDS: Pregabalin 75 MG CAP PO SCH ×4 (07:42→21:12)
[2019-06-16] MEDS: Nicotine 21 MG PATCH TD SCH (07:43)
[2019-06-16] MEDS: Enoxaparin Sodium 40 MG/0.4 ML SYRINGE SC SCH (07:43)
[2019-06-16] MEDS: Carvedilol 3.125 MG TAB PO SCH ×2 (07:44→21:12)
--- NOTE | 2019-06-16 11:36 | CON ---
DATE OF CONSULTATION: HISTORY: Rex Vera is a 64-year-old gentleman, lifelong smoker who says he just quit smoking maybe three days ago. I am not so sure he actually quit, but he presented to the ER with symptoms of shortness of breath and cough. He denies any chest pain, chills, sweats. His sats were 70%, apparently on 100% on 2 L. He has not walked for 3 months because of chronic issues. This morning, he is awake, alert, and responsive. He said he is feeling better. He is still congested. PAST MEDICAL HISTORY: 1. Recurrent metabolic encephalopathy. 2. COPD. 3. Coronary artery disease. 4. Congestive heart failure. 5. Hypertension. 6. Arthritis. 7. Bedridden. 8. Chronic pain. 9. Spondylolisthesis. PREVIOUS SURGERIES: Pacemaker, AICD, bypass, back surgery, spinal surgery. A noted smoker. Alcohol, none. Substance abuse, none. HOME MEDICATIONS: Include; 1. Remeron 15. 2. Zinc. 3. Topiramate 100 mg. 4. Flomax 0.4. 5. Vitamin. 6. Spiriva inhaler. 7. Thiamine. 8. Albuterol inhaler. 9. Lyrica. 10. Morphine. 11. Cymbalta 60. 12. Coreg 3.125. 13. BuSpar 15 twice a day. 14. Aspirin. 15. Melatonin. 16. Nicotine patch. ALLERGIES: NONE. SINCE ADMISSION, HE IS ON ZOSYN AND VANCOMYCIN WHICH I WILL CONTINUE, NEB TREATMENTS. LOW-DOSE STEROIDS. REVIEW OF SYSTEMS: Otherwise, 10-point negative. PHYSICAL EXAMINATION: GENERAL: Cachectic, older looking gentleman. VITAL SIGNS: Temperature 98, pulse 58, sats 90% on room air, blood pressure 115/76. CHEST: Bilateral crackles, no wheezing. CARDIAC: Normal S1, S2. No gallops. ABDOMEN: No mass. LABORATORY DATA: White count 12,000. Lytes are normal. His chest x-ray on admission shows kyphoscoliosis, elevated hemidiaphragms, indistinct bibasilar changes. His CT scan did confirm evidence of right lower lobe pneumonia with air bronchograms. IMPRESSION: Recurrent respiratory failure, right lobe pneumonia, possibly aspiration; three months, chronic back pain, cardiomyopathy, COPD. Agree with present antibiotics, low-dose steroids, neb treatment, supportive care. We will follow. Dr. Daniels out of town. We will notify when he comes back. Consultation note, 70 minutes; 50% direct patient care. Job ID: [id number]
--- NOTE | 2019-06-16 14:23 | PDOC.HOSPP ---
- Subjective Subjective: breathing better has cough+ says he does not choke while eating he needs his pain meds for chr pain specially back - Objective Vital Signs & Weight: Vital Signs (12 hours) Temp Pulse Resp BP Pulse Ox 06/16/19 13:36 70 14 06/16/19 11:39 98 F 73 17 103/66 98 06/16/19 07:44 91 L 06/16/19 07:29 98.4 F 58 L 16 115/76 91 L 06/16/19 06:51 60 14 06/16/19 04:00 99.0 F 63 18 112/70 100 Weight Admit Weight 117 lb 6.4 oz Weight 117 lb 6.4 oz I&O: 06/15/19 06/16/19 06/17/19 06:59 06:59 06:59 Intake Total 1420 Output Total 480 Balance 940 Result Diagrams: 06/16/19 05:55 06/16/19 05:55 ROS - Review of Systems All systems: All other ROS were reviewed and found negative. - Medication Medications: Active Medications Generic Name Dose Route Start Last Admin Trade Name Freq PRN Reason Stop Dose Admin Albuterol/Ipratropium 3 ml 06/15/19 19:00 06/16/19 13:36 Duoneb NEB 3 ml [id number] TOMMIE Administration Ascorbic Acid 500 mg 06/15/19 09:00 06/16/19 07:39 Vitamin C PO 500 mg BID TOMMIE Administration Aspirin 81 mg 06/15/19 09:00 06/16/19 07:40 Ecotrin PO 81 mg DAILY TOMMIE Administration Atorvastatin Calcium 10 mg 06/15/19 21:00 06/15/19 20:14 Lipitor PO 10 mg HS TOMMIE Administration Buspirone HCl 15 mg 06/15/19 09:00 06/16/19 07:40 Buspar PO 15 mg BID TOMMIE Administration Carvedilol 3.125 mg 06/15/19 09:00 06/16/19 07:44 Coreg PO 3.125 mg BID TOMMIE Administration Clopidogrel Bisulfate 75 mg 06/15/19 09:00 06/16/19 07:40 Plavix PO 75 mg DAILY TOMMIE Administration Duloxetine HCl 60 mg 06/15/19 09:00 06/16/19 07:41 Cymbalta PO 60 mg DAILY TOMMIE Administration Enoxaparin Sodium 40 mg 06/15/19 09:00 06/16/19 07:43 Lovenox SC 40 mg 0900 TOMMIE Administration Guaifenesin 400 mg 06/15/19 23:26 06/16/19 10:47 Organ-I Nr PO 400 mg Q4H PRN Administration Cough Piperacillin Sod/Tazobactam 100 mls @ 200 mls/hr 06/15/19 07:00 06/16/19 06: 14 Sod 4.5 gm/ Sodium Chloride IVPB 100 mls 0700,1500,2300 TOMMIE Administration Vancomycin HCl 1 gm/ Device 200 mls @ 200 mls/hr 06/15/19 20:00 06/15/19 20: 16 IVPB 200 mls 2000 TOMMIE Administration Melatonin 3 mg 06/15/19 21:00 06/15/19 22:17 Melatonin PO 3 mg HS TOMMIE Administration Morphine Sulfate 30 mg 06/15/19 09:00 06/16/19 07:41 Ms Contin PO 30 mg BID TOMMIE Administration Nicotine 21 mg 06/16/19 09:00 06/16/19 07:43 Nicoderm Patch TD 21 mg DAILY TOMMIE Administration Pregabalin 75 mg 06/15/19 09:00 06/16/19 13:11 Lyrica PO 75 mg QID TOMMIE Administration Senna 1 tab 06/15/19 09:00 06/16/19 07:39 Senokot PO 1 tab BID TOMMIE Administration Tamsulosin HCl 0.4 mg 06/15/19 09:00 06/16/19 07:39 Flomax PO 0.4 mg DAILY TOMMIE Administration Thiamine HCl 100 mg 06/15/19 09:00 06/16/19 07:40 Thiamine PO 100 mg DAILY TOMMIE Administration Topiramate 100 mg 06/15/19 21:00 06/15/19 20:17 Topamax PO 100 mg HS TOMMIE Administration - Exam NAD, awake alert Eye: PERRL, anicteric sclera ENT: no oropharyngeal lesions, moist mucosa Neck: supple, no JVD Heart: RRR, no murmur Respiratory: no wheezes, rhonchi Gastrointestinal: soft, non-tender, normal bowel sounds Extremities: no clubbing, no edema Neurological: CN's grossly intact, no focal deficits Psychiatric: normal affect, A&O x 3 Hosp A/P (1) PNA (pneumonia) Code(s): J18.9 - PNEUMONIA, UNSPECIFIED ORGANISM Status: Acute Qualifiers: Pneumonia type: aspiration pneumonia Laterality: bilateral (2) COPD (chronic obstructive pulmonary disease) Status: Chronic Qualifiers: COPD type: chronic bronchitis (3) Cervical myelopathy with cervical radiculopathy Code(s): M47.12 - OTHER SPONDYLOSIS WITH MYELOPATHY, CERVICAL REGION Status: Chronic (4) BPH (benign prostatic hyperplasia) Code(s): N40.0 - BENIGN PROSTATIC HYPERPLASIA WITHOUT LOWER URINRY TRACT SYMP Status: Chronic Qualifiers: Lower urinary tract symptom presence: symptoms absent Qualified Code(s): N40.0 - Benign prostatic hyperplasia without lower urinary tract symptoms (5) CAD (coronary artery disease) Code(s): I25.10 - ATHSCL HEART DISEASE OF [place] CORONARY ARTERY W/O ANG PCTRS Status: Chronic Qualifiers: Coronary Disease-Associated Artery/Lesion type: bypass graft [place] vs. transplanted heart: [place] heart Associated angina: without angina Qualified Code(s): I25.810 - Atherosclerosis of coronary artery bypass graft(s) without angina pectoris (6) Chronic back pain Code(s): M54.9 - DORSALGIA, UNSPECIFIED; G89.29 - OTHER CHRONIC PAIN Status: Chronic (7) HTN (hypertension) Code(s): I10 - ESSENTIAL (PRIMARY) HYPERTENSION Status: Chronic Qualifiers: Hypertension type: essential hypertension Qualified Code(s): I10 - Essential (primary) hypertension (8) CHF (congestive heart failure), NYHA class III Code(s): I50.9 - HEART FAILURE, UNSPECIFIED Status: Chronic Qualifiers: Congestive heart failure type: systolic Congestive heart failure chronicity : chronic Qualified Code(s): I50.22 - Chronic systolic (congestive) heart failure Plan: ef of 45% - Plan hemostable continue zosyn, vanc, nebs, steroids asp, plavix, coreg, cozaar, lipitor buspar, MS contin, lyrica, topamax, cymbalta PT to mobilize as tolerated.
[2019-06-16] MEDS: Vancomycin HCl 1 GM in Premix Bag 1 BAG IVPB SCH ×2 (20:14→21:13)
[2019-06-16] MEDS: Melatonin 3 MG TAB PO SCH (21:12)
[2019-06-16] MEDS: Atorvastatin Calcium 10 MG TAB PO SCH (21:12)
[2019-06-16] MEDS: Topiramate 100 MG TAB PO SCH (21:12)
[2019-06-17] MEDS: Piperacillin/Tazobactam 4.5 GM in Sodium Chloride 0.9% 100 ML IVPB SCH (06:02)
[2019-06-17] MEDS: busPIRone HCl 10 MG TAB PO SCH ×2 (08:26→20:43)
[2019-06-17] MEDS: Ascorbic Acid 500 mg Chewable Tablet PO SCH ×2 (08:27→20:42)
[2019-06-17] MEDS: Aspirin 81 mg Enteric Coated Tablet PO SCH (08:27)
[2019-06-17] MEDS: DULoxetine 60 MG CAP PO SCH (08:27)
[2019-06-17] MEDS: predniSONE 20 MG TAB PO SCH (08:27)
[2019-06-17] MEDS: Thiamine 100 MG TAB PO SCH (08:27)
[2019-06-17] MEDS: Losartan 25 MG TAB PO SCH (08:27)
[2019-06-17] MEDS: Senokot 8.6 MG TAB PO SCH ×2 (08:27→20:42)
[2019-06-17] MEDS: Clopidogrel Bisulfate 75 MG TAB PO SCH (08:27)
[2019-06-17] MEDS: Tamsulosin HCl 0.4 MG CAP PO SCH (08:27)
[2019-06-17] MEDS: Carvedilol 3.125 MG TAB PO SCH ×2 (08:27→20:44)
[2019-06-17] MEDS: Morphine ER 30 MG TAB PO SCH ×2 (08:27→20:43)
[2019-06-17] MEDS: Enoxaparin Sodium 40 MG/0.4 ML SYRINGE SC SCH (08:28)
[2019-06-17] MEDS: Nicotine 21 MG PATCH TD SCH (08:28)
[2019-06-17] MEDS: Pregabalin 75 MG CAP PO SCH ×4 (08:28→20:45)
[2019-06-17] MEDS ORDERED: Vancomycin HCl 500 MG in Sodium Chloride 0.9% 100 ML IVPB SCH (09:00)
--- NOTE | 2019-06-17 11:06 | PRG ---
DATE OF SERVICE: SUBJECTIVE: This morning, he is better, less short of breath, less cough. OBJECTIVE: VITAL SIGNS: Saturations are 96% on room air, respiratory rate 18, temperature 98, pulse 60, blood pressure 114/74. CHEST: There are no crackles or wheezing. CARDIAC: Normal S1, S2. No gallops. ABDOMEN: No masses. IMPRESSION: Presumed pneumonia, severe deconditioning, chronic obstructive pulmonary disease. Chronic pain. Switch over to oral medication, PT supportive care. Job ID: [id number]
--- NOTE | 2019-06-17 12:52 | PDOC.HOSPP ---
- Subjective Subjective: no sob or palp is breathing comfortable has not worked with PT yet - Objective Vital Signs & Weight: Vital Signs (12 hours) Temp Pulse Resp BP Pulse Ox 06/17/19 08:13 98.4 F 60 18 114/74 96 06/17/19 08:00 96 06/17/19 07:00 75 14 95 06/17/19 00:59 86 14 98 Weight Admit Weight 117 lb 6.4 oz Weight 117 lb 6.4 oz I&O: 06/16/19 06/17/19 06/18/19 06:59 06:59 06:59 Intake Total 1420 1240 Output Total 480 700 Balance 940 540 Result Diagrams: 06/16/19 05:55 06/16/19 05:55 ROS - Review of Systems All systems: All other ROS were reviewed and found negative. - Medication Medications: Active Medications Generic Name Dose Route Start Last Admin Trade Name Freq PRN Reason Stop Dose Admin Albuterol/Ipratropium 3 ml 06/15/19 19:00 06/17/19 07:00 Duoneb NEB 3 ml [id number] TOMMIE Administration Ascorbic Acid 500 mg 06/15/19 09:00 06/17/19 08:27 Vitamin C PO 500 mg BID TOMMIE Administration Aspirin 81 mg 06/15/19 09:00 06/17/19 08:27 Ecotrin PO 81 mg DAILY TOMMIE Administration Atorvastatin Calcium 10 mg 06/15/19 21:00 06/16/19 21:12 Lipitor PO 10 mg HS TOMMIE Administration Buspirone HCl 15 mg 06/15/19 09:00 06/17/19 08:26 Buspar PO 15 mg BID TOMMIE Administration Carvedilol 3.125 mg 06/15/19 09:00 06/17/19 08:27 Coreg PO 3.125 mg BID TOMMIE Administration Clopidogrel Bisulfate 75 mg 06/15/19 09:00 06/17/19 08:27 Plavix PO 75 mg DAILY TOMMIE Administration Duloxetine HCl 60 mg 06/15/19 09:00 06/17/19 08:27 Cymbalta PO 60 mg DAILY TOMMIE Administration Enoxaparin Sodium 40 mg 06/15/19 09:00 06/17/19 08:28 Lovenox SC 40 mg 0900 TOMMIE Administration Guaifenesin 400 mg 06/15/19 23:26 06/16/19 16:25 Organ-I Nr PO 400 mg Q4H PRN Administration Cough Vancomycin HCl 1 gm/ Device 200 mls @ 200 mls/hr 06/16/19 21:00 06/16/19 21: 13 IVPB 06/17/19 23:00 200 mls 2100 TOMMIE Administration Losartan Potassium 25 mg 06/17/19 09:00 06/17/19 08:27 Cozaar PO 25 mg DAILY TOMMIE Administration Melatonin 3 mg 06/15/19 21:00 06/16/19 21:12 Melatonin PO 3 mg HS TOMMIE Administration Morphine Sulfate 30 mg 06/15/19 09:00 06/17/19 08:27 Ms Contin PO 30 mg BID TOMMIE Administration Nicotine 21 mg 06/16/19 09:00 06/17/19 08:28 Nicoderm Patch TD 21 mg DAILY TOMMIE Administration Prednisone 20 mg 06/17/19 08:00 06/17/19 08:27 Prednisone PO 20 mg QAM-WM TOMMIE Administration Pregabalin 75 mg 06/15/19 09:00 06/17/19 08:28 Lyrica PO 75 mg QID TOMMIE Administration Senna 1 tab 06/15/19 09:00 06/17/19 08:27 Senokot PO 1 tab BID TOMMIE Administration Tamsulosin HCl 0.4 mg 06/15/19 09:00 06/17/19 08:27 Flomax PO 0.4 mg DAILY TOMMIE Administration Thiamine HCl 100 mg 06/15/19 09:00 06/17/19 08:27 Thiamine PO 100 mg DAILY TOMMIE Administration Topiramate 100 mg 06/15/19 21:00 06/16/19 21:12 Topamax PO 100 mg HS TOMMIE Administration - Exam NAD, awake alert Eye: PERRL, anicteric sclera ENT: no oropharyngeal lesions, moist mucosa Neck: supple, no JVD Heart: RRR, no murmur Respiratory: no wheezes, rhonchi Gastrointestinal: soft, non-tender, normal bowel sounds Extremities: no clubbing, no edema Neurological: CN's grossly intact, no focal deficits Psychiatric: normal affect, A&O x 3 Hosp A/P (1) PNA (pneumonia) Code(s): J18.9 - PNEUMONIA, UNSPECIFIED ORGANISM Status: Acute Qualifiers: Pneumonia type: aspiration pneumonia Laterality: bilateral (2) COPD (chronic obstructive pulmonary disease) Status: Chronic Qualifiers: COPD type: chronic bronchitis (3) Cervical myelopathy with cervical radiculopathy Code(s): M47.12 - OTHER SPONDYLOSIS WITH MYELOPATHY, CERVICAL REGION Status: Chronic (4) BPH (benign prostatic hyperplasia) Code(s): N40.0 - BENIGN PROSTATIC HYPERPLASIA WITHOUT LOWER URINRY TRACT SYMP Status: Chronic Qualifiers: Lower urinary tract symptom presence: symptoms absent Qualified Code(s): N40.0 - Benign prostatic hyperplasia without lower urinary tract symptoms (5) CAD (coronary artery disease) Code(s): I25.10 - ATHSCL HEART DISEASE OF [place] CORONARY ARTERY W/O ANG PCTRS Status: Chronic Qualifiers: Coronary Disease-Associated Artery/Lesion type: bypass graft [place] vs. transplanted heart: [place] heart Associated angina: without angina Qualified Code(s): I25.810 - Atherosclerosis of coronary artery bypass graft(s) without angina pectoris (6) Chronic back pain Code(s): M54.9 - DORSALGIA, UNSPECIFIED; G89.29 - OTHER CHRONIC PAIN Status: Chronic (7) HTN (hypertension) Code(s): I10 - ESSENTIAL (PRIMARY) HYPERTENSION Status: Chronic Qualifiers: Hypertension type: essential hypertension Qualified Code(s): I10 - Essential (primary) hypertension (8) CHF (congestive heart failure), NYHA class III Code(s): I50.9 - HEART FAILURE, UNSPECIFIED Status: Chronic Qualifiers: Congestive heart failure type: systolic Congestive heart failure chronicity : chronic Qualified Code(s): I50.22 - Chronic systolic (congestive) heart failure - Plan hemostable has been switched to augmentin this am continue nebs, steroids on asp, lipitor, plavix, coreg to mobilize with PT dc plan in 24-36hrs back to [facility]
[2019-06-17] MEDS: Topiramate 100 MG TAB PO SCH (20:42)
[2019-06-17] MEDS: Amoxicillin/Potassium Clav 500 MG TAB PO SCH (20:42)
[2019-06-17] MEDS: Atorvastatin Calcium 10 MG TAB PO SCH (20:42)
[2019-06-17] MEDS: Melatonin 3 MG TAB PO SCH (20:44)
[2019-06-17] MEDS: Vancomycin HCl 1 GM in Premix Bag 1 BAG IVPB SCH (20:45)
[2019-06-18 08:17] LABS: #Eosinphils 0.2 thou/uL (0.0-0.7); #Lymphocytes 1.7 thou/uL (1.20-3.40); #Monocytes 1.2 thou/uL (0.11-0.59); #Neutrophils 11.5 thou/uL (1.40-6.50); %Basophils 0.3 % (0.0-1.0); %Eosinophils 1.2 % (0.0-10.0); %Lymphocytes 11.8 % (21.0-51.0); %Monocytes 8.4 % (0.0-10.0); %Neutrophils 78.3 % (42.0-75.0); Hemoglobin 11.7 g/dL (14.0-18.0); Mean Corpuscular HGB CONC 33.2 g/dL (32.0-36.0); Mean Corpuscular Hemoglobin 29.4 pg (27.0-31.0); Mean Corpuscular Volume 88.6 fL (78.0-98.0); Mean Platelet Volume 8.6 fL (7.4-10.4); Platelet Count 237 thou/uL (130-400); RBC Distribution Width 13.3 % (11.5-14.5); Red Blood Cell (RBC) Count 3.96 mill/uL (4.70-6.10); White Blood Cell (WBC) Count 14.7 thou/uL (4.8-10.8)
[2019-06-18] MEDS: Enoxaparin Sodium 40 MG/0.4 ML SYRINGE SC SCH (08:41)
[2019-06-18] MEDS: Clopidogrel Bisulfate 75 MG TAB PO SCH (08:42)
[2019-06-18] MEDS: Aspirin 81 mg Enteric Coated Tablet PO SCH (08:42)
[2019-06-18] MEDS: Amoxicillin/Potassium Clav 500 MG TAB PO SCH ×2 (08:42→20:26)
[2019-06-18] MEDS: busPIRone HCl 10 MG TAB PO SCH ×2 (08:42→20:26)
[2019-06-18] MEDS: DULoxetine 60 MG CAP PO SCH (08:42)
[2019-06-18] MEDS: Ascorbic Acid 500 mg Chewable Tablet PO SCH ×2 (08:42→20:26)
[2019-06-18] MEDS: Nicotine 21 MG PATCH TD SCH (08:42)
[2019-06-18] MEDS: Thiamine 100 MG TAB PO SCH (08:42)
[2019-06-18] MEDS: Senokot 8.6 MG TAB PO SCH ×2 (08:43→20:26)
[2019-06-18] MEDS: Tamsulosin HCl 0.4 MG CAP PO SCH (08:43)
[2019-06-18] MEDS: Morphine ER 30 MG TAB PO SCH ×2 (08:43→20:26)
[2019-06-18] MEDS: predniSONE 20 MG TAB PO SCH (08:43)
[2019-06-18] MEDS: Pregabalin 75 MG CAP PO SCH ×4 (08:44→20:27)
[2019-06-18 09:56] LABS: Vancomycin, Trough 20.9 ug/mL
--- NOTE | 2019-06-18 10:29 | PRG ---
DATE OF SERVICE: 06/18/2019 SUBJECTIVE: This morning, he is better. He is awake, alert, responsive, no distress. OBJECTIVE: VITAL SIGNS: Saturations are 93 on room air, respiratory rate 18, temperature 98, blood pressure 96/61. CHEST: No wheezing or crackles. CARDIAC: Normal S1, S2. No gallops. ABDOMEN: Soft. IMPRESSION: 1. Pneumonia. 2. Kyphoscoliosis. 3. Severe deconditioning. PLAN: His white count is only 14,000. He has remained afebrile. Chest x-ray is pending. If x-ray looks good, he can probably be discharged home on antibiotics, tapering dose of prednisone. Job ID: [id number]
--- NOTE | 2019-06-18 10:56 | RAD ---
Chest AP view INDICATION: Pneumonia COMPARISON: June 14, 2019 FINDINGS: Lungs:Persistent right middle lobe airspace consolidation Cardiac silhouette pulmonary vasculature:Stable mild cardiomegaly. Pulmonary vasculature is within no rmal limits. AICD is unchanged. Pleural spaces: New small right pleural effusion Upper abdomen:No abnormality seen. Osseous structures: No acute osseous abnormality. Additional findings:None. IMPRESSION: Persistent right middle lobe airspace consolidation suspicious for pneumonia. There is a new small right pleural effusion.
[2019-06-18] MEDS: Losartan 25 MG TAB PO SCH (12:11)
[2019-06-18] MEDS: Carvedilol 3.125 MG TAB PO SCH ×2 (12:11→20:26)
--- NOTE | 2019-06-18 14:09 | PDOC.HOSPP ---
- Subjective Subjective: cough is better, no sob is watching tv eating well - Objective Vital Signs & Weight: Vital Signs (12 hours) Temp Pulse Resp BP Pulse Ox 06/18/19 13:26 71 16 06/18/19 12:16 98.0 F 71 18 92/58 L 90 L 06/18/19 08:03 98.2 F 58 L 18 97/61 90 L 06/18/19 08:00 93 L 06/18/19 06:54 79 14 93 L Weight Admit Weight 117 lb 6.4 oz Weight 117 lb 6.4 oz I&O: 06/17/19 06/18/19 06/19/19 06:59 06:59 06:59 Intake Total 1240 680 Output Total 700 Balance 540 680 Result Diagrams: 06/18/19 07:08 06/16/19 05:55 ROS - Review of Systems All systems: All other ROS were reviewed and found negative. - Medication Medications: Active Medications Generic Name Dose Route Start Last Admin Trade Name Freq PRN Reason Stop Dose Admin Albuterol/Ipratropium 3 ml 06/15/19 19:00 06/18/19 13:26 Duoneb NEB 3 ml [id number] TOMMIE Administration Amoxicillin/Clavulanate Potassium 500 mg 06/17/19 21:00 06/18/19 08:42 Augmentin PO 500 mg Q12HR TOMMIE Administration Ascorbic Acid 500 mg 06/15/19 09:00 06/18/19 08:42 Vitamin C PO 500 mg BID TOMMIE Administration Aspirin 81 mg 06/15/19 09:00 06/18/19 08:42 Ecotrin PO 81 mg DAILY TOMMIE Administration Atorvastatin Calcium 10 mg 06/15/19 21:00 06/17/19 20:42 Lipitor PO 10 mg HS TOMMIE Administration Buspirone HCl 15 mg 06/15/19 09:00 06/18/19 08:42 Buspar PO 15 mg BID TOMMIE Administration Carvedilol 3.125 mg 06/15/19 09:00 06/18/19 12:11 Coreg PO Not Given BID TOMMIE Clopidogrel Bisulfate 75 mg 06/15/19 09:00 06/18/19 08:42 Plavix PO 75 mg DAILY TOMMIE Administration Duloxetine HCl 60 mg 06/15/19 09:00 06/18/19 08:42 Cymbalta PO 60 mg DAILY TOMMIE Administration Enoxaparin Sodium 40 mg 06/15/19 09:00 06/18/19 08:41 Lovenox SC 40 mg 0900 TOMMIE Administration Guaifenesin 400 mg 06/15/19 23:26 06/16/19 16:25 Organ-I Nr PO 400 mg Q4H PRN Administration Cough Losartan Potassium 25 mg 06/17/19 09:00 06/18/19 12:11 Cozaar PO Not Given DAILY TOMMIE Melatonin 3 mg 06/15/19 21:00 06/17/19 20:44 Melatonin PO 3 mg HS TOMMIE Administration Morphine Sulfate 30 mg 06/15/19 09:00 06/18/19 08:43 Ms Contin PO 30 mg BID TOMMIE Administration Nicotine 21 mg 06/16/19 09:00 06/18/19 08:42 Nicoderm Patch TD 21 mg DAILY TOMMIE Administration Prednisone 20 mg 06/17/19 08:00 06/18/19 08:43 Prednisone PO 20 mg QAM-WM TOMMIE Administration Pregabalin 75 mg 06/15/19 09:00 06/18/19 12:09 Lyrica PO 75 mg QID TOMMIE Administration Senna 1 tab 06/15/19 09:00 06/18/19 08:43 Senokot PO 1 tab BID TOMMIE Administration Tamsulosin HCl 0.4 mg 06/15/19 09:00 06/18/19 08:43 Flomax PO 0.4 mg DAILY TOMMIE Administration Thiamine HCl 100 mg 06/15/19 09:00 06/18/19 08:42 Thiamine PO 100 mg DAILY TOMMIE Administration Topiramate 100 mg 06/15/19 21:00 06/17/19 20:42 Topamax PO 100 mg HS TOMMIE Administration - Exam NAD, awake alert Eye: PERRL, anicteric sclera ENT: normocephalic atraumatic, moist mucosa Neck: supple, no JVD Heart: RRR, no murmur Respiratory: CTAB, no rales Gastrointestinal: soft, non-tender, normal bowel sounds Extremities: no cyanosis, no clubbing Neurological: CN's grossly intact, no focal deficits Musculoskeletal: normal tone, generalized weakness Hosp A/P (1) PNA (pneumonia) Code(s): J18.9 - PNEUMONIA, UNSPECIFIED ORGANISM Status: Acute Qualifiers: Pneumonia type: aspiration pneumonia Laterality: bilateral (2) COPD (chronic obstructive pulmonary disease) Status: Chronic Qualifiers: COPD type: chronic bronchitis (3) Cervical myelopathy with cervical radiculopathy Code(s): M47.12 - OTHER SPONDYLOSIS WITH MYELOPATHY, CERVICAL REGION Status: Chronic (4) BPH (benign prostatic hyperplasia) Code(s): N40.0 - BENIGN PROSTATIC HYPERPLASIA WITHOUT LOWER URINRY TRACT SYMP Status: Chronic Qualifiers: Lower urinary tract symptom presence: symptoms absent Qualified Code(s): N40.0 - Benign prostatic hyperplasia without lower urinary tract symptoms (5) CAD (coronary artery disease) Code(s): I25.10 - ATHSCL HEART DISEASE OF [place] CORONARY ARTERY W/O ANG PCTRS Status: Chronic Qualifiers: Coronary Disease-Associated Artery/Lesion type: bypass graft [place] vs. transplanted heart: [place] heart Associated angina: without angina Qualified Code(s): I25.810 - Atherosclerosis of coronary artery bypass graft(s) without angina pectoris (6) Chronic back pain Code(s): M54.9 - DORSALGIA, UNSPECIFIED; G89.29 - OTHER CHRONIC PAIN Status: Chronic (7) HTN (hypertension) Code(s): I10 - ESSENTIAL (PRIMARY) HYPERTENSION Status: Chronic Qualifiers: Hypertension type: essential hypertension Qualified Code(s): I10 - Essential (primary) hypertension (8) CHF (congestive heart failure), NYHA class III Code(s): I50.9 - HEART FAILURE, UNSPECIFIED Status: Chronic Qualifiers: Congestive heart failure type: systolic Congestive heart failure chronicity : chronic Qualified Code(s): I50.22 - Chronic systolic (congestive) heart failure - Plan hemostable is on augmentin, nebs, steroids PT to ambulate as tolerated or mobilize him dc plan in am to [place] continue asp, plavix, lipitor, coreg, buspar, cymbalta, MS contin, flomax and topamax
[2019-06-18] MEDS: Topiramate 100 MG TAB PO SCH (20:26)
[2019-06-18] MEDS: Melatonin 3 MG TAB PO SCH (20:26)
[2019-06-18] MEDS: Atorvastatin Calcium 10 MG TAB PO SCH (20:26)
[2019-06-19] MEDS: Losartan 25 MG TAB PO SCH (08:04)
[2019-06-19] MEDS: Senokot 8.6 MG TAB PO SCH (08:04)
[2019-06-19] MEDS: Clopidogrel Bisulfate 75 MG TAB PO SCH (08:05)
[2019-06-19] MEDS: Pregabalin 75 MG CAP PO SCH ×2 (08:05→14:33)
[2019-06-19] MEDS: DULoxetine 60 MG CAP PO SCH (08:05)
[2019-06-19] MEDS: Tamsulosin HCl 0.4 MG CAP PO SCH (08:06)
[2019-06-19] MEDS: busPIRone HCl 10 MG TAB PO SCH (08:06)
[2019-06-19] MEDS: Amoxicillin/Potassium Clav 500 MG TAB PO SCH (08:06)
[2019-06-19] MEDS: Ascorbic Acid 500 mg Chewable Tablet PO SCH (08:06)
[2019-06-19] MEDS: Aspirin 81 mg Enteric Coated Tablet PO SCH (08:07)
[2019-06-19] MEDS: Morphine ER 30 MG TAB PO SCH (08:07)
[2019-06-19] MEDS: Thiamine 100 MG TAB PO SCH (08:07)
[2019-06-19] MEDS: Enoxaparin Sodium 40 MG/0.4 ML SYRINGE SC SCH (08:08)
[2019-06-19] MEDS: Carvedilol 3.125 MG TAB PO SCH (08:09)
[2019-06-19] MEDS: Nicotine 21 MG PATCH TD SCH (08:09)
[2019-06-19] MEDS: predniSONE 20 MG TAB PO SCH (08:09)
--- NOTE | 2019-06-19 09:14 | PRG ---
DATE OF SERVICE: 06/19/2019 SUBJECTIVE: This morning, he is awake, alert, responsive, in no distress. OBJECTIVE: VITAL SIGNS: Temperature 98, pulse 65, respiratory rate 20, saturations 93% on room air, blood pressure 90/51. CHEST: No wheezing, crackles. CARDIAC: Normal S1, S2. No gallops. IMPRESSION: Severe kyphoscoliosis, superimposed pneumonia in right middle lobe, probably chronic. Continue prednisone. Continue Augmentin for several days. [facility] placement. Job ID: [id number]
[2019-06-19 15:56] VITALS: BP 108/75; TEMP 98.3
--- NOTE | 2019-06-20 15:34 | DIS ---
DATE OF ADMISSION: 06/14/2019 DATE OF DISCHARGE: 06/19/2019 [address]POSITION: [facility] PRIMARY DISCHARGE DIAGNOSES: 1. Aspiration pneumonia, likely chronic. 2. Chronic obstructive pulmonary disease with mild exacerbation. 3. Cervical myelopathy with radiculopathy. 4. Coronary artery disease. 5. Benign prostatic hypertrophy. 6. Chronic back pain, on opioids. 7. Hypertension. 8. History of congestive heart failure with systolic dysfunction class III with no current exacerbation. 9. acute respiratory failure with hypoxia on arrival resolved. PROCEDURES DONE DURING HOSPITALIZATION: CT chest done showed bibasilar consolidation, larger on the right, suggesting bibasilar pneumonia with associated patchy parenchymal densities. He also had ground-glass opacity in the left upper lobe, likely multifocal pneumonia/atypical pneumonia. On the CAT scan, there are multilevel degenerative changes in the lower thoracic and upper lumbar spine. Echo with 2D Doppler showed EF of 40% to 45% with inferior wall being akinetic. Blood cultures x2, no growth. White count of 16 on the day of admission with H and H of 14 and 44, platelet count 177. BUN 19, creatinine 0.6, albumin 3.0. BNP 219. INPATIENT CONSULT: Dr. Hanks for Pulmonology. DISCHARGE MEDICATIONS: 1. DuoNeb q.6 hourly p.r.n. 2. Buspirone 15 mg twice daily. 3. Aspirin 81 mg p.o. daily. 4. Coreg 3.125 mg twice daily. 5. Plavix 75 mg p.o. daily. 6. Cymbalta 60 mg p.o. daily. 7. Finasteride 5 mg p.o. daily. 8. Folic acid 1 mg p.o. daily. 9. Melatonin 3 mg p.o. at bedtime. 10. MS Contin 30 mg twice daily. 11. Multivitamin one tablet once daily. 12. Lejunior-3 fatty acid 1 capsule daily. 13. Pravachol 40 mg p.o. at bedtime. 14. Lyrica 75 mg p.o. 4 times daily. 15. Flomax 0.4 mg p.o. daily. 16. Thiamine 100 mg p.o. daily. 17. Spiriva inhaler 18 mcg twice daily. 18. Topiramate 100 mg p.o. at bedtime. 19. Augmentin 500 mg p.o. twice daily for another 10 days. 20. Cozaar 25 mg p.o. daily. 21. Prednisone 20 mg p.o. daily for another 3 days. ALLERGIES: NO KNOWN DRUG ALLERGIES. DISCHARGE PLAN: The patient is to follow up with his primary care physician in 1 week. BRIEF COURSE DURING HOSPITALIZATION: The patient initially was sent over from [facility] for shortness of breath which had been ongoing for 2 weeks prior to arrival. On arrival, he had saturations of 70% on room air, which promptly got up to 100% on 2 L nasal cannula. He was essentially admitted for multifocal pneumonia with acute respiratory failure with hypoxia on arrival, which got resolved with oxygen supplementation. The patient has chronic pain syndrome and he is on multiple narcotic agents. Likely, he was aspirating. He was counseled with regard to reducing some of his psychotropic, narcotics, Lyrica, but the patient was adamant on continuing the same dosing at present. [facility] needs to have ongoing conversation and counseling with regard to his current aspiration symptoms and likely relation to his narcotics. He has not ambulated with physical therapy here. He remained hemodynamically stable during his stay. Prior to discharge, he is eating well and he is off nasal cannula oxygen and he is saturating well. He was evaluated by Dr. Hanks for Pulmonology and Critical Care as well. A total of 35 minutes was spent on discharge plan. He will be shortly discharged to [facility]. Please note, I have seen and examined the patient on the day of discharge. Job ID: [id number] MTDD
== END 2019-06-19 16:20 | DRG 178 ==
LOC: ERS 17:30 → T4-A 18:57
PROVIDERS: ADMIT Family Medicine; ATTEND Family Medicine
DX: J69.0 Pneumonitis due to inhalation of food and vomit (principal); M47.12 Other spondylosis with myelopathy, cervical region; I50.22 Chronic systolic (congestive) heart failure; I25.810 Atherosclerosis of coronary artery bypass graft(s) without angina pectoris; I11.0 Hypertensive heart disease with heart failure; F32.9 Major depressive disorder, single episode, unspecified; M19.90 Unspecified osteoarthritis, unspecified site; N40.0 Benign prostatic hyperplasia without lower urinary tract symptoms; M54.9 Dorsalgia, unspecified; G89.29 Other chronic pain; M41.9 Scoliosis, unspecified; J44.9 Chronic obstructive pulmonary disease, unspecified; Z95.810 Presence of automatic (implantable) cardiac defibrillator; Z74.01 Bed confinement status; Z95.1 Presence of aortocoronary bypass graft; I25.2 Old myocardial infarction; Z79.899 Other long term (current) drug therapy; Z87.891 Personal history of nicotine dependence; Z79.82 Long term (current) use of aspirin; Z79.01 Long term (current) use of anticoagulants
CPT/HCPCS: 36415; 71045; 71250; 80048; 80053; 80202; 83735; 83880; 84484; 85025; 87040; 93005; 93306; 94640; 96365; 96367; J1650; J1956; J2543; J3370; J3490; J7512; J7620

== ENCOUNTER 2019-08-07 14:44 | Inpatient (IN) | payer MEDICARE, MEDICAID ==
[2019-08-07 15:56] LABS: #Basophils 0.1 thou/uL (0.0-0.2); #Eosinphils 0.1 thou/uL (0.0-0.7); #Lymphocytes 1.4 thou/uL (1.20-3.40); #Monocytes 0.5 thou/uL (0.11-0.59); #Neutrophils 4.2 thou/uL (1.40-6.50); %Basophils 1.5 % (0.0-1.0); %Monocytes 7.3 % (0.0-10.0); %Neutrophils 67.2 % (42.0-75.0); Hemoglobin 14.3 g/dL (14.0-18.0); Mean Corpuscular HGB CONC 33.3 g/dL (32.0-36.0); Mean Corpuscular Hemoglobin 31.2 pg (27.0-31.0); Mean Corpuscular Volume 93.8 fL (78.0-98.0); Mean Platelet Volume 8.8 fL (7.4-10.4); Platelet Count 199 thou/uL (130-400); RBC Distribution Width 14.4 % (11.5-14.5); Red Blood Cell (RBC) Count 4.59 mill/uL (4.70-6.10); White Blood Cell (WBC) Count 6.3 thou/uL (4.8-10.8)
--- NOTE | 2019-08-07 15:57 | RAD ---
XR Chest 1 View Portable HISTORY: Arteritis status COMPARISON: 07/20/2019 FINDINGS: Changes of median sternotomy are again seen. The heart size is normal. Left-sided AICD is noted. The re is mild prominence of the pulmonary vascularity. No lobar consolidation, pneumothoraces or large effusions are identified.
[2019-08-07 16:10] LABS: ALT (SGPT) 53 U/L (8-55); AST (SGOT) 75 U/L (5-34); Acetaminophen Less than 6.0 mcg/mL (10.0-30.0); Albumin 3.3 g/dL (3.4-4.8); Alcohol Less than 10 mg/dL (Less than 10); Alkaline Phosphatase 108 U/L (40-150); Anion Gap 12 mmol/L (10-20); BUN (Urea Nitrogen) 36 mg/dL (8.4-25.7); Bilirubin, Total 0.7 mg/dL (0.2-1.2); CK (CPK) 563 U/L (30-200); Calc. Creatinine Clearance 0 mL/min (70-130); Calcium 9.3 mg/dL (7.8-10.44); Carbon Dioxide 20 mmol/L (23-31); Chloride 108 mmol/L (98-107); Estimated GFR-MDRD 88; Globulin 4.3 g/dL (2.4-3.5); Glucose 74 mg/dL (80-115); Protein, Total 7.6 g/dL (5.8-8.1); Salicylate Less than 8.0 mg/dL (15.0-30.0); Sodium 135 mmol/L (136-145)
--- NOTE | 2019-08-07 16:13 | CT ---
CT BRAIN WITHOUT CONTRAST: HISTORY: Altered mental status FINDINGS: No evidence of acute infarct, hemorrhage, midline shift or abnormal extra-axial fluid collections is seen. The ventricular size is appropriate and the basilar cisterns are patent. The bony calvarium is intact. The visualized paranasal sinuses and mastoid air cells are well aerated. No significant interval change is seen since exam of 03/22/2019. IMPRESSION: No CT evidence of acute intracranial process.
[2019-08-07 16:31] LABS: Bilirubin Negative (Negative); Blood, Urine Negative (Negative); Clarity Clear (Clear); Glucose, Urine (Dipstick) Normal (Negative); Leukocyte Negative Leu/uL (Negative); Nitrite Negative (Negative); Protein, Urine (Dipstick) Negative (Neg-Trace); Urobilinogen 3 mg/dL (Less than 2)
[2019-08-07 16:33] LABS: CKMB 19.5 ng/mL (0-6.6)
[2019-08-07 16:47] LABS: Medtox Reader # READER 4
[2019-08-07 16:48] LABS: Amphetamine Not Detected (NotDetected); Barbiturates Screen Not Detected (NotDetected); Benzodiazepine Screen Not Detected (NotDetected); Cocaine Metabolite Screen Not Detected (NotDetected); Medtox Control Line Valid? VALID (VALID); Methadone Not Detected (NotDetected); Methamphetamine Not Detected (NotDetected); Opiate Screen Detected (NotDetected); Oxycodone Screen Not Detected (NotDetected); Phencyclidine (PCP) Not Detected (NotDetected); THC/Cannabinoid Screen Not Detected (NotDetected); Tricyclic Screen Not Detected (NotDetected)
[2019-08-07] MEDS ORDERED: Lorazepam 2 MG/ML VIAL ONE (16:56)
[2019-08-07] MEDS ORDERED: Aspirin Chewable 81 MG TAB ONE (17:02)
[2019-08-07 19:18] LABS: Troponin I 0.022 ng/mL (< 0.028)
--- NOTE | 2019-08-07 20:24 | PDOC.EVN ---
Event Note - Event Note Event Note: [id number] H&P dictated
[2019-08-07 21:52] LABS: Troponin I 0.022 ng/mL (< 0.028)
--- NOTE | 2019-08-08 01:52 | PDOC.EVN ---
Event Note - Event Note Event Note: Patient had 4 beat run of VT; will order Mg++ with morning labs.
[2019-08-08] MEDS ORDERED: diphenhydrAMINE 50 MG/ML VIAL IVP SCH (02:00)
[2019-08-08 02:17] VITALS: BMI 22.6
--- NOTE | 2019-08-08 03:02 | HP ---
CHIEF COMPLAINT: Confusion. HISTORY OF PRESENT ILLNESS: Mr. Vera is a 64-year-old male with multiple medical problems including COPD, coronary artery disease, congestive heart failure, myocardial infarction, hypertension, liver cirrhosis?, among others, presented to the emergency room for evaluation of altered mental status and confusion. Patient's nephew reported that he was very confused this morning. Nephew reports he thought he was talking to family members and . Patient stated he is here for bilateral leg pain. Patient stated he was hospitalized in May 2019 for pneumonia. Nephew reports that he returned home from rehab three days ago. Patient initially was restless, confused, for which he was given Ativan injections. Currently, patient is sedated after receiving Ativan. Unable to get anymore history from the patient at this point. PAST MEDICAL HISTORY: 1. COPD. 2. Coronary artery disease. 3. Congestive heart failure. 4. Myocardial infarction. 5. Hypertension. 6. Liver cirrhosis? PAST SURGICAL HISTORY: 1. Stents placed x2. 2. Pacemaker/internal defibrillator. 3. Coronary artery bypass graft surgery. 4. Spine surgery. 5. Depression. SOCIAL HISTORY: He is a former tobacco smoker. He drinks socially once a month. He just came out of rehab three days ago. Currently lives at home. He is with them. HOME MEDICATIONS: Please see home medication reconciliation form for updated medications. ALLERGIES: NO KNOWN ALLERGIES. FAMILY HISTORY: Reviewed and noncontributory. REVIEW OF SYSTEMS: Review of 14 systems negative, except what is mentioned in history of present illness. PHYSICAL EXAMINATION: GENERAL: Patient is sedated, just received Ativan. HEAD AND NECK: Normocephalic and atraumatic. Neck is supple. No JVD. CHEST: Clear, fair bilateral air entry. HEART: S1, S2. Regular. ABDOMEN: Soft. Bowel sounds present. NEUROLOGIC: Sedated after receiving Ativan. PSYCHIATRIC: Unable to assess. EXTREMITIES: No clubbing or cyanosis. LABORATORY DATA: Urine drug screen is positive for opiates. Initial troponin was 0.03 and repeat troponin 0.02, so it is trending down. No history of chest pain. Electrolytes; BUN is 36, creatinine 0.8, sodium is 135, glucose is 74, and ammonia is 21. CBC; WBC count 6.3, hemoglobin 14.3, and platelets 199. Chest x-ray; no acute findings. ASSESSMENT AND PLAN: 1. Acute metabolic encephalopathy, etiology unclear. 2. Congestive heart failure. 3. Coronary artery disease. 4. Chronic obstructive pulmonary disease. 5. Chronic pain, on narcotics, analgesics. 6. Liver cirrhosis? PLAN: 1. Admit. 2. Frequent neuro checks. 3. Avoid narcotics/sedatives for tonight and reassess in the a.m. 4. If the patient remains altered and confused, may need further neurological workup. 5. Reconcile home medications. 6. Deep venous thrombosis prophylaxis. SCD. 7. Expected length of stay at least one midnight if patient is stable and shows significant improvement. Job ID: [id number]
[2019-08-08 04:40] LABS: #Eosinphils 0.1 thou/uL (0.0-0.7); #Lymphocytes 1.5 thou/uL (1.20-3.40); #Monocytes 0.5 thou/uL (0.11-0.59); #Neutrophils 4.6 thou/uL (1.40-6.50); %Basophils 0.3 % (0.0-1.0); %Eosinophils 1.4 % (0.0-10.0); %Lymphocytes 22.2 % (21.0-51.0); %Monocytes 7.6 % (0.0-10.0); %Neutrophils 68.4 % (42.0-75.0); Hemoglobin 12.4 g/dL (14.0-18.0); Mean Corpuscular HGB CONC 33.4 g/dL (32.0-36.0); Mean Corpuscular Hemoglobin 31.4 pg (27.0-31.0); Mean Corpuscular Volume 94.1 fL (78.0-98.0); Mean Platelet Volume 9.2 fL (7.4-10.4); Platelet Count 189 thou/uL (130-400); RBC Distribution Width 14.4 % (11.5-14.5); Red Blood Cell (RBC) Count 3.94 mill/uL (4.70-6.10); White Blood Cell (WBC) Count 6.7 thou/uL (4.8-10.8)
[2019-08-08 05:35] LABS: ALT (SGPT) 43 U/L (8-55); AST (SGOT) 61 U/L (5-34); Albumin 2.8 g/dL (3.4-4.8); Alkaline Phosphatase 91 U/L (40-150); Anion Gap 11 mmol/L (10-20); BUN (Urea Nitrogen) 27 mg/dL (8.4-25.7); Bilirubin, Total 0.6 mg/dL (0.2-1.2); Calc. Creatinine Clearance 86 mL/min (70-130); Calcium 8.6 mg/dL (7.8-10.44); Carbon Dioxide 18 mmol/L (23-31); Chloride 113 mmol/L (98-107); Estimated GFR-MDRD Greater than 90; Globulin 3.4 g/dL (2.4-3.5); Magnesium 1.8 mg/dL (1.6-2.6); Protein, Total 6.2 g/dL (5.8-8.1); Sodium 138 mmol/L (136-145)
[2019-08-08 05:41] LABS: Glucose 51 mg/dL (80-115)
[2019-08-08] MEDS ORDERED: Dextrose 5 % And 0.9 % NaCl 1,000 ML IV SCH (07:00)
[2019-08-08] MEDS ORDERED: Prevnar 13-Val Conj/PF 0.5 ML SYRINGE IM ONE (09:00)
[2019-08-08] MEDS: Enoxaparin Sodium 40 MG/0.4 ML SYRINGE SC SCH (10:15)
[2019-08-08] MEDS ORDERED: Lorazepam 2 MG/ML VIAL SLOW IVP SCH (14:00)
[2019-08-08] MEDS ORDERED: DULoxetine 60 MG CAP PO SCH (15:00)
[2019-08-08] MEDS ORDERED: Pregabalin 75 MG CAP PO SCH (15:00)
[2019-08-08] MEDS: Pregabalin 75 MG CAP PO SCH ×2 (16:24→20:43)
--- NOTE | 2019-08-08 19:58 | PDOC.HOSPP ---
- Subjective Encounter Date: 08/08/19 Encounter Time: 19:45 Subjective: f/u for AMS, encephalopathy likely due to polypharmacy. Receiving Ativan, IVF's and more calm this pm. + hallucinations per nursing and family. - Objective Vital Signs & Weight: Vital Signs (12 hours) Temp Pulse Resp BP Pulse Ox 08/08/19 16:27 97.5 F L 88 20 141/70 H 93 L 08/08/19 12:00 98.1 F 82 20 128/86 96 Weight Weight 131 lb 11.2 oz I&O: 08/07/19 08/08/19 08/09/19 06:59 06:59 06:59 Intake Total 300 905 Output Total 1 Balance 300 904 Result Diagrams: 08/08/19 03:56 08/08/19 03:56 Additional Labs: Accuchecks 08/08/19 08/08/19 06:43 05:47 POC Glucose 90 53 L* Radiology Reviewed by me: Yes (CT brain - negative) EKG Reviewed by me: Yes (Tele - SR with PVC's) Hospitalist ROS - Medication Medications: Active Medications Generic Name Dose Route Start Last Admin Trade Name Freq PRN Reason Stop Dose Admin Enoxaparin Sodium 40 mg 08/08/19 09:00 08/08/19 10:15 Lovenox SC 40 mg 0900 [facility] Administration Pregabalin 75 mg 08/08/19 17:00 08/08/19 16:24 Lyrica PO Not Given QID TOMMIE - Exam General Appearance: awake alert Eye: PERRL, anicteric sclera ENT: normocephalic atraumatic, no oropharyngeal lesions Neck: supple, symmetric, no JVD, no thyromegaly, no lymphadenopathy Heart: RRR, no gallops, no rubs, normal peripheral pulses Heart - other findings: L upper chest wall with AICD Respiratory: no rales Respiratory - other findings: diminshed in bases Gastrointestinal: soft, non-tender, non-distended, normal bowel sounds, no palpable masses Extremities: no cyanosis, no clubbing, no edema Skin: normal turgor Neurological: cranial nerve grossly intact Neurological - other findings: Confused Musculoskeletal: generalized weakness, diffuse muscle atrophy Psychiatric: oriented to person Hosp A/P (1) Acute metabolic encephalopathy Code(s): G93.41 - METABOLIC ENCEPHALOPATHY Status: Acute Plan: Likely multifactorial including polypharmacy, continue Ativan IV, general supportive mgmt (2) Polypharmacy Code(s): Z79.899 - OTHER PRODUCTION BROACHER (CURRENT) DRUG THERAPY Status: Chronic Plan: Review home medications, may need titration and limiting psychotropes and pain meds (3) Chronic pain Code(s): G89.29 - OTHER CHRONIC PAIN Status: Chronic Qualifiers: Chronic pain type: chronic pain syndrome Qualified Code(s): G89.4 - Chronic pain syndrome Plan: See above (4) Physical deconditioning Code(s): R53.81 - OTHER [place] Status: Chronic Plan: PT evaluation for functional assessment (5) COPD (chronic obstructive pulmonary disease) Status: Chronic Qualifiers: COPD type: chronic bronchitis Plan: No acute exacerbation, continue general pulmonary support - Plan PT/OT, social research assistant, respiratory therapy, DVT proph w/SCDs Stable currently Continue Ativan 0.5mg IV q8h Resume Lyrica and Cymbalta PT evaluation for functional assessment AM lab: CMP, CBC
[2019-08-08] MEDS: Lorazepam 2 MG/ML VIAL SLOW IVP PRN (20:43)
[2019-08-08] MEDS: Topiramate 100 MG TAB PO SCH ×2 (20:44→21:07)
[2019-08-08] MEDS: Senokot S 8.6-50 MG TAB PO SCH ×2 (20:44→21:08)
[2019-08-09] MEDS: Lorazepam 2 MG/ML VIAL SLOW IVP PRN ×2 (04:50→11:50)
[2019-08-09 06:00] LABS: Band 3 % (5-11); Hemoglobin 12.4 g/dL (14.0-18.0); Lymphocytes 16 % (21-51); MDiff Complete? YES; Mean Corpuscular HGB CONC 31.8 g/dL (32.0-36.0); Mean Corpuscular Hemoglobin 29.5 pg (27.0-31.0); Mean Corpuscular Volume 92.8 fL (78.0-98.0); Mean Platelet Volume 8.9 fL (7.4-10.4); Monocytes 5 % (0-10); Neutrophil 76 % (42-75); Platelet Count 212 thou/uL (130-400); RBC Distribution Width 14.4 % (11.5-14.5); Red Blood Cell (RBC) Count 4.22 mill/uL (4.70-6.10); White Blood Cell (WBC) Count 10.7 thou/uL (4.8-10.8)
[2019-08-09 06:11] LABS: Anion Gap 15 mmol/L (10-20); BUN (Urea Nitrogen) 18 mg/dL (8.4-25.7); Calc. Creatinine Clearance 96 mL/min (70-130); Calcium 8.8 mg/dL (7.8-10.44); Carbon Dioxide 17 mmol/L (23-31); Chloride 114 mmol/L (98-107); Estimated GFR-MDRD Greater than 90; Glucose 87 mg/dL (80-115); Potassium 3.5 mmol/L (3.5-5.1); Protein, Total 6.7 g/dL (5.8-8.1); Sodium 142 mmol/L (136-145)
[2019-08-09 06:12] LABS: ALT (SGPT) 49 U/L (8-55); AST (SGOT) 74 U/L (5-34); Alkaline Phosphatase 91 U/L (40-150); Globulin 3.7 g/dL (2.4-3.5)
[2019-08-09] MEDS: DULoxetine 60 MG CAP PO SCH ×2 (09:21→09:23)
[2019-08-09] MEDS: Carvedilol 3.125 MG TAB PO SCH (09:22)
[2019-08-09] MEDS: Clopidogrel Bisulfate 75 MG TAB PO SCH (09:22)
[2019-08-09] MEDS: Enoxaparin Sodium 40 MG/0.4 ML SYRINGE SC SCH (09:23)
[2019-08-09] MEDS: Topiramate 100 MG TAB PO SCH ×2 (09:23→21:31)
[2019-08-09] MEDS: Folic Acid 1 MG TAB PO SCH (09:23)
[2019-08-09] MEDS: Senokot S 8.6-50 MG TAB PO SCH ×2 (09:23→21:31)
[2019-08-09] MEDS: Pregabalin 75 MG CAP PO SCH ×4 (09:23→21:30)
--- NOTE | 2019-08-09 15:09 | PDOC.HOSPP ---
- Subjective Encounter Date: 08/09/19 Encounter Time: 15:10 Subjective: f/u for encephalopathy suspected due to polypharmacy receiving IVF's, Ativan with decreased agitation and vocalization. States he is doing ok and nursing notes persistent confusion. - Objective Vital Signs & Weight: Vital Signs (12 hours) Temp Pulse Resp BP Pulse Ox 08/09/19 11:59 98.9 F 65 16 143/84 H 96 08/09/19 07:44 98.3 F 92 16 144/84 H 92 L 08/09/19 07:40 92 L 08/09/19 03:15 98.6 F 87 18 134/74 96 Weight Weight 131 lb 11.2 oz I&O: 08/08/19 08/09/19 08/10/19 06:59 06:59 06:59 Intake Total 300 905 Output Total 1 Balance 300 904 Result Diagrams: 08/09/19 05:10 08/09/19 05:09 Additional Labs: Laboratory Tests 08/07/19 08/08/19 15:43 03:56 Carbon Dioxide 20 L 18 L Radiology Reviewed by me: Yes (CT brain - no acute process) EKG Reviewed by me: Yes (Tele - SR ) Hospitalist ROS - Medication Medications: Active Medications Generic Name Dose Route Start Last Admin Trade Name Freq PRN Reason Stop Dose Admin Carvedilol 3.125 mg 08/09/19 09:00 08/09/19 09:22 Coreg PO 3.125 mg DAILY TOMMIE Administration Clopidogrel Bisulfate 75 mg 08/09/19 09:00 08/09/19 09:22 Plavix PO 75 mg DAILY TOMMIE Administration Duloxetine HCl 60 mg 08/09/19 09:00 08/09/19 09:21 Cymbalta PO Not Given QAM TOMMIE Duloxetine HCl 60 mg 08/09/19 09:00 08/09/19 09:23 Cymbalta PO 60 mg DAILY TOMMIE Administration Enoxaparin Sodium 40 mg 08/08/19 09:00 08/09/19 09:23 Lovenox SC 40 mg 0900 TOMMIE Administration Folic Acid 1 mg 08/09/19 09:00 08/09/19 09:23 Folvite PO 1 mg DAILY TOMMIE Administration Lorazepam 0.5 mg 08/08/19 13:50 08/09/19 11:50 Ativan SLOW IVP 0.5 mg Q6H PRN Administration .AGITATION Pregabalin 75 mg 08/08/19 17:00 08/09/19 11:53 Lyrica PO 75 mg QID TOMMIE Administration Senna/Docusate Sodium 1 tab 08/08/19 21:00 08/09/19 09:23 Senokot S PO 1 tab BID TOMMIE Administration Topiramate 100 mg 08/08/19 21:00 08/09/19 09:23 Topamax PO 100 mg BID TOMMIE Administration - Exam General Appearance: ill appearing General - other findings: groggy, answers questions slowly Eye: PERRL, anicteric sclera ENT: normocephalic atraumatic, no oropharyngeal lesions Neck: supple, symmetric, no JVD, no thyromegaly, no lymphadenopathy Heart: RRR, no gallops, no rubs, normal peripheral pulses Respiratory: CTAB, no wheezes, no rales, no ronchi Gastrointestinal: soft, non-tender, non-distended, normal bowel sounds, no palpable masses Extremities: no cyanosis, no clubbing, no edema Skin: normal turgor Neurological: no new deficit Musculoskeletal: generalized weakness, diffuse muscle atrophy Psychiatric: oriented to person, oriented to place Hosp A/P (1) Acute metabolic encephalopathy Code(s): G93.41 - METABOLIC ENCEPHALOPATHY Status: Acute Plan: Likely multifactorial including polypharmacy, mild improvement, hold psychotropes and limit sedating medications and narcotics, reorientation techniques (2) Polypharmacy Code(s): Z79.899 - OTHER LONG-TERM (CURRENT) DRUG THERAPY Status: Chronic Plan: Limit psychotropes/narcotics and sedation (3) Chronic pain Code(s): G89.29 - OTHER CHRONIC PAIN Status: Chronic Qualifiers: Chronic pain type: chronic pain syndrome Qualified Code(s): G89.4 - Chronic pain syndrome (4) Physical deconditioning Code(s): R53.81 - OTHER MALAISE Status: Chronic Plan: PT for mobilization and functional assessment, will benefit with home PT (5) COPD (chronic obstructive pulmonary disease) Status: Chronic Qualifiers: COPD type: chronic bronchitis - Plan plan discussed w/ family, PT/OT, social worker psychiatric, respiratory therapy, out of bed/ambulate, DVT proph w/SCDs Stable currently Continue Ativan 0.5mg IV q8h Resume Lyrica and Cymbalta PT evaluation for functional assessment CM for HH/PT options AM lab: CMP, NH3+
[2019-08-10] MEDS: Lorazepam 2 MG/ML VIAL SLOW IVP PRN ×2 (00:54→11:27)
[2019-08-10 04:25] LABS: ALT (SGPT) 45 U/L (8-55); AST (SGOT) 67 U/L (5-34); Albumin 2.9 g/dL (3.4-4.8); Alkaline Phosphatase 82 U/L (40-150); Anion Gap 15 mmol/L (10-20); BUN (Urea Nitrogen) 16 mg/dL (8.4-25.7); Calc. Creatinine Clearance 93 mL/min (70-130); Calcium 8.4 mg/dL (7.8-10.44); Carbon Dioxide 19 mmol/L (23-31); Chloride 111 mmol/L (98-107); Estimated GFR-MDRD Greater than 90; Globulin 3.5 g/dL (2.4-3.5); Glucose 90 mg/dL (80-115); Protein, Total 6.4 g/dL (5.8-8.1); Sodium 142 mmol/L (136-145)
[2019-08-10] MEDS: DULoxetine 60 MG CAP PO SCH ×2 (09:56→09:57)
[2019-08-10] MEDS: Carvedilol 3.125 MG TAB PO SCH (09:57)
[2019-08-10] MEDS: Folic Acid 1 MG TAB PO SCH (09:57)
[2019-08-10] MEDS: Clopidogrel Bisulfate 75 MG TAB PO SCH (09:57)
[2019-08-10] MEDS: Pregabalin 75 MG CAP PO SCH ×3 (09:57→16:10)
[2019-08-10] MEDS: Enoxaparin Sodium 40 MG/0.4 ML SYRINGE SC SCH (09:57)
[2019-08-10] MEDS: Topiramate 100 MG TAB PO SCH (09:58)
[2019-08-10] MEDS: Senokot S 8.6-50 MG TAB PO SCH (09:58)
[2019-08-10 11:22] VITALS: TEMP 97.7
[2019-08-10] MEDS ORDERED: Potassium Chloride 20 MEQ TAB PO SCH ×2 (15:45→17:00)
[2019-08-10 15:49] VITALS: BP 113/86
--- NOTE | 2019-08-11 11:34 | DIS ---
DATE OF ADMISSION: 08/08/2019 DATE OF DISCHARGE: 08/10/2019 DISCHARGE DIAGNOSES: 1. Acute metabolic encephalopathy, multifactorial including polypharmacy. 2. Polypharmacy. 3. Chronic pain. 4. Physical deconditioning. 5. Chronic obstructive pulmonary disease, stable. 6. Coronary artery disease, chronic and stable. CONSULTATIONS: None. PERTINENT LABORATORY AND X-RAY FINDINGS: Potassium ranged between 3.0 to 4.0, carbon dioxide level ranged between 17 to 20, creatinine 0.71. Troponin I ranged between 0.022 to 0.034. Total CK 563. AST ranged between 61 to 75. Albumin ranged between 2.8 to 3.0. CBC showed a hemoglobin ranging between 12.4 to 14.3. Urine drug screen dated 08/07/2019, positive for opiates. Plasma alcohol level less than 10. CT of the brain without contrast dated 08/07/2019, showed no acute intracranial process. Portable chest x-ray dated 08/07/2019, showed no acute cardiopulmonary process. Pulmonary vascular prominence noted. HOSPITAL COURSE: The patient was admitted to the telemetry unit after initially presenting with altered mental status and confusion. The patient with multiple medications including psychotropics and narcotics. Urine drug screen was positive for opiates, however, no specific other substances were detected. The patient was given drug holiday and limited on sedating and psychotropic medications. The patient slowly clinically improved and had returned to baseline mental status function by the time of discharge. The patient with multiple comorbid status including severe deconditioning as well as coronary artery disease, which remained chronic and stable. Discussions were had with the patient's family regarding palliative and hospice services; however, at this time the patient and family wish to pursue medical care and home health services after discharge. I have examined the patient at the time of discharge and discussed followup instructions. The patient verbalized understanding and in agreement, ready for discharge on 08/10/2019. DISCHARGE MEDICATIONS: 1. Arginine/vitamin C one packet p.o. b.i.d. 2. Coreg 3.125 mg p.o. daily. 3. Plavix 75 mg p.o. daily. 4. Cymbalta 60 mg p.o. daily. 5. Finasteride 5 mg p.o. daily. 6. Folic acid 1 mg p.o. daily. 7. Mirtazapine 15 mg p.o. at bedtime. 8. Pravachol 40 mg p.o. at bedtime. 9. Lyrica 75 mg p.o. q.i.d. 10. Flomax 0.4 mg p.o. b.i.d. 11. Topamax 100 mg p.o. b.i.d. 12. Cozaar 25 mg p.o. daily. FOLLOWUP: The patient may follow up with Dr. Laith Amin within 7 days of discharge. CONDITION ON DISCHARGE: Fair. ACTIVITY: Rolling walker with standby/contact guard assistance with high fall risk precautions. DIET: Regular. SPECIAL INSTRUCTIONS: The patient received ongoing physical and occupational therapy with [facility]. The patient contemplating transition to palliative care in the near future. CODE STATUS: Chemical code and intubation only. No chest compressions. DISPOSITION: Home with [facility] on 08/10/2019. TIME SPENT: Total time preparing and coordinating discharge, 35 minutes. Job ID: [id number]
--- NOTE | 2019-08-12 13:51 | EKG ---
Test Reason : AMS Blood Pressure : / mmHG Vent. Rate : 068 BPM Atrial Rate : 068 BPM P-R Int : 104 ms QRS Dur : 106 ms QT Int : 430 ms P-R-T Axes : 000 -06 109 degrees QTc Int : 457 ms Electronic atrial pacemaker Inferior infarct , age undetermined Abnormal ECG Confirmed by LENCHO MUIR MD ([id number]), digital editor ZAYNAB TAMEZ ([id number]) on 08/12/2019 1:51:33 PM Referred By: LILIA Confirmed By:LENCHO MUIR MD
== END 2019-08-10 18:41 | disposition home health service (06) | DRG 92 ==
LOC: ERS 14:44 → 2SE 18:00 → OBSVTOIN 08-08 14:07
PROVIDERS: ADMIT Internal Medicine; ATTEND Internal Medicine
DX: G92 Toxic encephalopathy (principal); I47.2 Ventricular tachycardia; T43.95XA Adverse effect of unspecified psychotropic drug, initial encounter; T40.605A Adverse effect of unspecified narcotics, initial encounter; T42.75XA Adverse effect of unspecified antiepileptic and sedative-hypnotic drugs, initial encounter; G89.4 Chronic pain syndrome; J44.9 Chronic obstructive pulmonary disease, unspecified; I25.10 Atherosclerotic heart disease of native coronary artery without angina pectoris; I50.9 Heart failure, unspecified; I11.0 Hypertensive heart disease with heart failure; I25.2 Old myocardial infarction; Z95.5 Presence of coronary angioplasty implant and graft; Z95.1 Presence of aortocoronary bypass graft; Z87.891 Personal history of nicotine dependence; Z79.899 Other long term (current) drug therapy
CPT/HCPCS: 36415; 36416; 51701; 70450; 71045; 80053; 80306; 80307; 81003; 82140; 82550; 82553; 83735; 84484; 85007; 85025; 85027; 93005; 96361; 96374; J1200; J1650; J2060

== ENCOUNTER 2019-10-30 09:47 | Outpatient (CLI) | payer MEDICARE, MEDICAID ==
--- NOTE | 2019-10-30 10:27 | ULT ---
US Hepatic Doppler History: Hepatitis C Comparison: Hepatic Doppler ultrasound 2014 Findings: Real-time grayscale, color, and spectral analysis of the liver was performed. The pancreas is not well seen. The visualized aorta and IVC are unremarkable. There is coarsened hepatic echotexture without mass. The hepatic and portal veins are patent. Choleli thiasis is present. Common bile duct is normal. Spleen is normal measuring 8.7 cm in length. Splenic artery and vein are patent. Impression: 1. Mild coarsened hepatic echotexture suggesting hepatic dysfunction without underlying mass. 2. Normal vascular directional flow. 3. Cholelithiasis without cholecystitis.
== END 2019-10-30 09:48 | disposition home or self-care (01) ==
LOC: BICULT 09:47
PROVIDERS: ATTEND Physician Assistant Medical
DX: B18.2 Chronic viral hepatitis C (principal); K74.60 Unspecified cirrhosis of liver; E87.6 Hypokalemia; K80.20 Calculus of gallbladder without cholecystitis without obstruction
CPT/HCPCS: 76705

== ENCOUNTER 2020-05-08 07:20 | Outpatient (CLI) | payer MEDICARE, MEDICAID ==
--- NOTE | 2020-05-08 08:21 | ULT ---
HEPATIC ULTRASOUND WITH COLOR AND SPECTRAL DOPPLER IMAGING: HISTORY: Chronic hepatitis and cirrhosis. COMPARISON: 10/30/2019. FINDINGS: There appears to be a large gallstone within the gallbladder. Liver echogenicity is very markedly co arse and poorly defined. This is particularly concerning the left lobe. Common bile duct 0.5 cm. S pleen was not seen. No evidence for ascites. Vascular duplex examination demonstrates antegrade hepatic and portal venous flow. IMPRESSION: Very coarse heterogeneous dense echogenic liver. Cholelithiasis with at least 1 large gallstone with out evidence for acute cholecystitis. Antegrade hepatic and portal venous flow. POS: RRE
== END 2020-05-08 07:21 | disposition home or self-care (01) ==
LOC: ULT 07:20
PROVIDERS: ATTEND Physician Assistant Medical
DX: B18.2 Chronic viral hepatitis C (principal); K74.60 Unspecified cirrhosis of liver; E87.6 Hypokalemia; K80.20 Calculus of gallbladder without cholecystitis without obstruction; R93.2 Abnormal findings on diagnostic imaging of liver and biliary tract
CPT/HCPCS: 76705